=== PATIENT | male | born 1955 | race Caucasian/White ===

== ENCOUNTER 2016-04-02 13:33 | Outpatient (RCR) | payer BC, OTHER ==
[~2016-04-02 13:33] MED LIST: ASP325T PO; CALC-80 PO; CLPD75T PO; IRON45TA2 PO; MNTL10T PO; MULT1CAP27 PO; PANT40SU PO; [UNRECOGNIZED DRUG - CODE] PO
--- OUTSIDE RECORDS SUMMARY | 2016-04-02 13:38 | XMS REPORT | Continuity of Care Document ---
Author Author [facility] Organization [facility] Address Unknown Phone Unavailable Care Team Providers Care Home Appliance Installer Name Role Phone Self, Steven PCP [phone] Source Comments Some departments are not documenting in the electronic medical record. If you do not see the information that you expected, contact Release of Information in the Health Information Management department at [phone] for further assistance in locating additional records.[facility] Active Allergies and Adverse Reactions Allergen Noted Date Severity Reactions Comments Lactose 1955 Low NAUSEA ONLY, SWEATING Intense nausea, premedicates but still stays away Current Medications Prescription Sig. Disp. Refills Start End Date Status Date albuterol (VENTOLIN HFA, Inhale 2 Puffs by mouth Active PROAIR HFA) 90 into the lungs every 6 mcg/actuation inhaler hours as needed for Shortness of Breath. aspirin 325 mg tablet 1 Tab daily. 90 Tab 3 03/18/19 Active 16 diphenhydrAMINE/lidocaine Swish and Spit 10 mL by 480 mL 3 02/13/20 Active /antacid (#) (MAGIC mouth as directed three 16 MOUTHWASH) 1:1:1 oral times daily as needed for suspension Mouth Pain. oxymetazoline (AFRIN) Take 2 Sprays by mouth Active 0.05 % nasal spray three times daily as needed (helps stop bleeding). gabapentin (NEURONTIN) Take 5 mL by mouth twice 03/21/19 Active 250 mg/5 mL oral solution daily. 17 montelukast (SINGULAIR) Take 1 Tab via feeding 03/21/19 Active 10 mg tablet tube daily. 17 polyethylene glycol 3350 Take 17 g via feeding 03/21/19 Active (GLYCOLAX; MIRALAX) 17 tube daily. 17 gram/dose powder ferrous sulfate 300 mg/5 5 mL daily. give via 03/21/19 Active mL oral solution feeding tube 17 metoclopramide HCl 10 mL four times daily as 03/21/19 Active (REGLAN) 1 mg/mL oral needed for Nausea, 17 solution Vomiting or Other.... Give via feeding tube metoprolol tartrate 0.5 Tabs twice daily. 03/21/19 Active (LOPRESSOR) 25 mg tablet give via feeding tube. 17 acetaminophen (TYLENOL) Take 2 Tabs via feeding 03/21/19 Active 325 mg tablet tube every 6 hours as 17 needed for Pain. fentaNYL (DURAGESIC) 12 Apply 1 Patch to top of 10 Patch 0 03/21/19 Active mcg/hr patch skin as directed every 72 17 hours Earliest Fill Date: 03/21/16 oxyCODONE (ROXICODONE) 1 5-10 mL every 4 hours as 473 mL 0 03/21/19 Active mg/mL oral solution needed for Pain give via 17 feeding tube levoFLOXacin (LEVAQUIN) Take 20 mL by mouth every 200 mL 0 03/28/19 04/07/19 Active 25 mg/mL oral solution 24 hours for 10 days. 17 17 metroNIDAZOLE (#) Take 10 mL by mouth four 280 mL 0 03/28/19 Active (FLAGYL) 50 mg/mL oral times daily for 7 days. 17 17 suspension montelukast (SINGULAIR) Take 10 mg by mouth 03/21/19 Discontin 10 mg tablet daily. 17 ued vitamins, multiple tablet Take 1 Tab by mouth at 03/07/19 Discontin bedtime daily. 17 ued polyethylene glycol 3350 Take 17 g by mouth daily. 03/21/19 Discontin (GLYCOLAX; MIRALAX) 17 17 ued gram/dose powder fentaNYL (DURAGESIC) 12 Apply 1 Patch to top of 10 Patch 0 03/02/19 03/21/19 Discontin mcg/hr patch skin as directed every 72 17 17 ued hours Earliest Fill Date: 03/02/16 oxyCODONE (ROXICODONE) 1 Take 5-10 mL by mouth 1000 mL 0 03/02/19 Discontin mg/mL oral solution every 4 hours as needed 17 17 ued for Pain Earliest Fill Date: 03/02/16 ferrous sulfate 300 mg/5 Take 5 mL by mouth daily. 150 mL 12 03/02/19 03/21/19 Discontin mL oral solution 17 17 ued metoprolol tartrate Take 0.5 Tabs by mouth 180 Tab 3 03/02/19 Discontin (LOPRESSOR) 25 mg tablet twice daily. 17 17 ued gabapentin (NEURONTIN) Take 5 mL by mouth every 470 mL 12 03/02/19 03/21/19 Discontin 250 mg/5 mL oral solution 8 hours. 17 17 ued oxyCODONE (ROXICODONE) 1 Take 5-10 mL by mouth 1000 mL 0 03/07/19 Discontin mg/mL oral solution every 4 hours as needed 17 17 ued for Pain cephalexin (KEFLEX) 250 Take 10 mL by mouth twice 140 mL 0 03/07/19 03/14/19 mg/5 mL oral suspension daily for 7 days. 17 17 metoclopramide HCl Take 10 mL by mouth four 500 mL 0 03/07/19 Discontin (REGLAN) 1 mg/mL oral times daily as needed for 17 17 ued solution Nausea, Vomiting or Other.... acetaminophen (TYLENOL) Take 650 mg by mouth 03/21/19 Discontin 325 mg tablet every 6 hours as needed 17 ued for Pain. 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 Pressure ulcer to coccyx. Home health to assist with wound care. Tracheostomy care ([facility]) 03/19/2016 Failure to thrive (0-17) 03/19/2016 Protein-calorie malnutrition, severe ([facility]) 03/19/2016 Last Assessment & Plan: TPN in addition to J-tube feedings as patient continues to suffer from malnutrition. Jejunostomy tube leak ([facility]) 03/19/2016 Status post insertion of percutaneous endoscopic gastrostomy (PEG) tube ([facility]) Dislodged jejunostomy tube 03/19/2016 Generalized abdominal pain of unknown etiology 03/19/2016 Nausea 03/08/2016 Last Assessment & Plan: Reglan QID PRN as this will help with nausea and constipation. Constipation 03/08/2016 Last Assessment & Plan: Increase miralax and suppositories PRN. If abd pain does not improve or drainage from J-tube increases, he will contact general surgery or go to closes ER for evaluation. Cellulitis 03/08/2016 Last Assessment & Plan: Keflex BID for next 7 days. Hypercalcemia 03/07/2016 Last Assessment & Plan: Patient will receive zometa today along with IV fluids r/t elevated calcium. Repeat CMP in 1 week. Severe malnutrition (HCC) 02/26/2016 Last Assessment & Plan: Patient not tolerating J-tube feeding despite J-tube replacement. We will consult licensing officer to assist with TPN in the home. We will recheck weight and labs in 1 week. 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 Overview: 02/17/14: Squamous mucosa, "lower lip biopsy":Well differentiated invasive squamous cell carcinoma, p16 immunostain performed at [facility] on specimen 2 is negative 02/26/14: PET- hypermetabolic mandibular lesion with adjacent soft tissue thickening, bilateral metabolically active level One cervical lymph nodes compatible with bilateral regional metastatic disease 02/26/14: CT chest: 0.5 cm RUL nodule, 0.4 cm RUL 03/17/13: composite resection, tracheotomy, neck dissections, direct laryngoscopy Pathology - well differentiated squamous cell carcinoma, involves mandible, skin ulceration, 1 left level 1 positive node, 61 others negative, margins negative, closest 0.5 mm. pT4a,N1 Negative for HPV by CHERYL and p16 staining. NO PNI , LVI and NO CELESTE Adjuvant chemotherapy weekly cisplatin and concurrent radiation therapy (in [facility]) , Completed 06/11/2014. 12/27/2015- Right Retromolar Trigone biopsy- Invasive moderately to poorly differentiated squamous cell carcinoma. 01/16/2016- PET scan- There is diffuse increased metabolic activity in the maxillary and upper lip soft tissues, as well as the right mandibulectomy osteotomy site, the right mandibular body, and adjacent right perimandibular soft tissues demonstrating maximum SUV 15.6 There is a hypermetabolic right level 5 lymph node with maximum SUV 12.3 There is a focal increased FDG uptake posterior lateral to the left oropharyngeal wall, maximum SUV 6.24. There is also focal FDG uptake lateral to the right vallecula, maximum SUV 4.77. L ast Assessment & Plan: Patient's family report improvement in size and # of lesions under right eye and upper cheek. We will proceed with cycle #3 today. We will start antibiotic and flagyl r/t infection and foul odor from right cheek fistula/ulcer. He will return in 1 week with labs, possible fluids and visit. 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 Resolved Problems Problem Noted Date Resolved Date Oral cancer (HCC) 02/15/2014 03/22/2014 Overview: Noted bleeding from his gum in the summer and was diagnosed with gingivitis. He developed pain and issues eating as well as cervical adenopathy. Bopsied by Dr. Puckett and had a CT scan of the neck revealing squamous cell carcinoma with bilateral cervical metastasis. History of smokeless tobacco x 38 years, quit 9 years ago Mucosa and teeth intact and viable, bleeding ulcer in gingivolabial sulcus. Overlying skin indurated in 3-4 cm area. Midline trachea without mass or lesion, right 1.5 cm tender adenopathy level I B CT chest 02/26/14 w/2 tiny (5 and 4 mm) RUL nodules - plan to repeat scan in 3-6- months PET 02/26/14 hypermetabolic mandibular lesion (primary) and bilateral level one nodes S/P composite resection on 03/17/14, bilateral neck dissection, tracheotomy, free flap reconstruction Most Recent Encounters Date Type Specialty Providers Description 04/02/2016 Documentation Oncology Norma Garcia 03/29/2016 Office Visit General Surgery Fransisca Anaya APRN Skin breakdown (Primary Dx); Status post insertion of percutaneous endoscopic gastrostomy (PEG) tube (HCC); Jejunostomy tube leak (HCC); Protein-calorie malnutrition, severe (HCC) 03/29/2016 Orders Only Oncology Sanjeev Lozano MD Malignant neoplasm of head, face, and neck (HCC) (Primary Dx) 03/29/2016 Documentation Oncology Chastity Bass RD 03/29/2016 Documentation Oncology Norma Garcia 03/29/2016 Documentation Oncology Sanjeev Lozano MD 03/28/2016 Hospital Oncology Sanjeev Lozano MD Encounter 03/28/2016 Office Visit Oncology Sanjeev Lozano MD Cancer of the lip, oral cavity, and pharynx (HCC) (Primary Dx); Cellulitis of mouth; Malnutrition (HCC); Severe malnutrition (HCC); Protein-calorie malnutrition, severe (HCC); Skin breakdown 03/28/2016 Nurse Only Oncology Sanjeev Lozano MD Head and neck cancer (HCC) (Primary Dx) 03/28/2016 Documentation Oncology Norma Garcia 03/26/2016 Orders Only Oncology Nohelia Daly APRN 03/23/2016 Telephone Oncology Triny Alvarenga RN Swelling 03/19/2016 [facility] Linus Richter MD Jejunostomy tube leak - Encounter Marleny Colin DO (HCC) 03/21/2016 Lynne Espinoza RN Melvin, Lorie Collins, Zachary S, MD 03/19/2016 Office Visit Otolaryngology Nohelia Ibarra MD Tracheostomy care (HCC) (Primary Dx) 03/19/2016 Ancillary Radiology Outpatient, Radiologist Diagnosis unknown Orders (Primary Dx) 03/19/2016 Ancillary Radiology Outpatient, Radiologist Orders 03/15/2016 [facility] Sanjeev Lozano MD Malignant neoplasm of Encounter overlapping sites of lip, oral cavity and pharynx (HCC) 03/15/2016 Office Visit General Surgery Lynne Mckeon APRN S/P exploratory laparotomy (Primary Dx); Jejunostomy tube leak (HCC); Jejunostomy tube site pain (HCC); Oral phase dysphagia 03/14/2016 Telephone Oncology Sanjeev Lozano MD Research 03/12/2016 Hospital Radiology Encounter 03/12/2016 Telephone Oncology Etienne Good MD Fatigue 03/11/2016 Refill Oncology Sanjeev Lozano MD 03/07/2016 [facility] Oncology Nohelia Daly APRN Encounter 03/07/2016 Office Visit Oncology Nohelia Daly APRN Hypercalcemia ( Primary Dx); Head and neck cancer (HCC); Cellulitis, unspecified cellulitis site; Nausea; Cancer of the lip, oral cavity, and pharynx (HCC); Constipation, unspecified constipation type 03/07/2016 Nurse Only Oncology Nohelia Daly APRN Head and neck cancer (HCC) (Primary Dx) 03/04/2016 Orders Only Oncology Nohelia Daly APRN 02/28/2016 Anesthesia Kristina Causey, JIAN Event 02/28/2016 Surgery Nohelia Ibarra MD REVISION OF TRACHEOSTOMY, DIRECT LARYNGOSCOPY 02/27/2016 Prep for Case Adryan Mayorga MD 02/26/2016 Surgery Nasrin Avila MD Canceled TRACHEOSTOMY 02/25/2016 Prep for Case Pauline Schroeder MD 02/24/2016 [facility] Hematology and Oncology Hector Best MD Dysphagia - Encounter Arnulfo Burns MD 03/02/2016 Rachel Monzon MD Werner, Gregg, MD 02/22/2016 [facility] Oncology Nohelia Daly APRN No Show Encounter 02/22/2016 Office Visit Otolaryngology Amarilys Durán, Cancer of the lip, oral PA-C cavity, and pharynx (HCC) (Primary Dx); History of radiation to head and neck region; 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) 02/22/2016 Nurse Only Oncology Nohelia Daly APRN Oral cancer (HCC) (Primary Dx) 02/22/2016 Office Visit Oncology Nohelia Daly APRN Cancer of the lip, oral cavity, and pharynx (HCC) (Primary Dx); Oral pain 02/22/2016 Nurse Only Oncology Nohelia Daly APRN Head and neck cancer (HCC) 02/15/2016 [facility] Oncology Sanjeev Lozano MD Encounter 02/15/2016 [facility] Oncology Sanjeev Lozano MD Encounter 02/15/2016 [facility] Sanjeev Lozano MD Oral cancer (HCC) Encounter 02/15/2016 [facility] Jose Suarez MD Cancer of oral cavity Encounter (HCC) 02/15/2016 Documentation Oncology Kymberly Alvarez 02/15/2016 Documentation Oncology Aide Harrison 02/14/2016 Office Visit Otolaryngology Amarilys Durán, History of radiation to PA-C head and neck region (Primary Dx); Cancer of the lip, oral cavity, and pharynx (HCC); Pulmonary nodule 02/14/2016 Orders Only Oncology Sanjeev Lozano MD 02/13/2016 Office Visit Oncology Nohelia Daly APRN Cancer of the lip, oral cavity, and pharynx (HCC) (Primary Dx); Oral pain 02/13/2016 Nurse Only Oncology Nohelia Daly APRN Head and neck cancer (HCC) 02/13/2016 Documentation Oncology Nohelia Daly APRN 02/13/2016 Documentation Oncology Nohelia Daly APRN 02/13/2016 Documentation Oncology Kymberly Alvarez 02/07/2016 [facility] Radiology Sanjeev Lozano MD Encounter Micheal Soto RN Torline, Kit Collins, Zachary S, MD 02/03/2016 [facility] Radiology Sanjeev Lozano MD Encounter 02/01/2016 Screening Form 01/27/2016 Telephone Oncology Sanjeev Lozano MD Appointment Request 01/27/2016 Orders Only Oncology Sanjeev Lozano MD Head and neck cancer (HCC) (Primary Dx) 01/25/2016 Office Visit Oncology Nhoelia Ibarra MD Leukocytosis, unspecified Sanjeev Lozano MD type (Primary Dx); Cancer of the lip, oral cavity, and pharynx (HCC); Neoplastic malignant related fatigue; Other iron deficiency anemia 01/25/2016 Precert Oncology Sanjeev Lozano MD 01/25/2016 Documentation Oncology Sanjeev Lozano MD 01/17/2016 Office Visit Otolaryngology Jf Eid PA-C Cancer of the lip, oral cavity, and pharynx (HCC) (Primary Dx); 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); Neck mass; Oral pain; History of radiation to head and neck region; Pulmonary nodule; Oral lesion 01/17/2016 Orders Only Oncology Nohelia Ibarra MD Oral cancer (HCC) (Primary Dx) 01/16/2016 [facility] Radiology Jf Eid PA-C Encounter 01/16/2016 Screening Form 01/05/2016 [facility] Radiology Jf Eid PA-C Encounter 01/05/2016 Screening Form 01/04/2016 Telephone Otolaryngology Jf Eid PA-C Appointment - Regarding cancelling PET & CT's time change Social History Tobacco Use Types Packs/Day Years Used Date Never Smoker 36 Smokeless Tobacco: Former Snuff Quit: User 09/15/2004 Tobacco Cessation: Counseling Given: Yes Comments: Alcohol Use Drinks/Week oz/Week Comments No Last Filed Vital Signs Vital Sign Reading Time Taken Blood Pressure 146/86 03/29/2016 1:58 PM HVAC RESIDENTIAL SERVICE TECHNICIAN Pulse 104 03/29/2016 1:58 PM HVAC RESIDENTIAL SERVICE TECHNICIAN Temperature 36.7 C (98 F) 03/29/2016 1:58 PM HVAC RESIDENTIAL SERVICE TECHNICIAN Respiratory Rate 20 03/29/2016 1:58 PM HVAC RESIDENTIAL SERVICE TECHNICIAN Height 1.803 m (5' 11") 03/29/2016 1:58 PM HVAC RESIDENTIAL SERVICE TECHNICIAN Weight 45.632 kg (100 lb 9.6 oz) 03/29/2016 1:58 PM HVAC RESIDENTIAL SERVICE TECHNICIAN Body Mass Index 14.04 03/29/2016 1:58 PM HVAC RESIDENTIAL SERVICE TECHNICIAN Oxygen Saturation 98% 03/28/2016 2:57 PM HVAC RESIDENTIAL SERVICE TECHNICIAN Plan of Care Date Type Specialty Providers Description 04/04/2016 Appointment Oncology Sanjeev Lozano MD [address] [place] [address] [phone] (Fax) 04/04/2016 Appointment Oncology Nohelia Daly APRN [address] [place] [address] [phone] (Fax) 04/04/2016 Appointment Oncology Sanjeev Lozano MD [address] [place] [address] [phone] (Fax) 04/26/2016 Appointment General Surgery Health Maintenance Due Date Last Done Comments Hepatitis C Screening 1955 Physical (Comprehensive) 1960 Exam Pertussis Vaccine 1964 Tetanus Vaccine 1970 Colorectal Cancer 2003 Screening Shingles Vaccine 2013 Influenza Vaccine 10/27/2015 Procedures from Last 3 Months Procedure Name Priority Date/Time Associated Diagnosis Comments TELEMETRY STRIPS-SCAN 03/05/2016 Results for this 1:54 PM HVAC RESIDENTIAL SERVICE TECHNICIAN procedure are in the results section. OPEN INSERTION 02/28/2016 Oral cancer (HCC) GASTROSTOMY TUBE 9:35 AM HVAC RESIDENTIAL SERVICE TECHNICIAN REVISION OF TRACHEOSTOMY, 02/28/2016 Oral cancer (HCC) DIRECT LARYNGOSCOPY 9:35 AM HVAC RESIDENTIAL SERVICE TECHNICIAN ECG-SCAN 02/16/2016 Results for this 7:29 AM HVAC RESIDENTIAL SERVICE TECHNICIAN procedure are in the results section. ECG-SCAN 02/16/2016 Results for this 7:29 AM HVAC RESIDENTIAL SERVICE TECHNICIAN procedure are in the results section. Results from Last 3 Months URIC ACID (03/28/2016 2:43 PM)Only the most recent of 4 results within the time period is included. Component Value Range Uric Acid 6.0 4.0-8.0 MG/DL LDH-LACTATE DEHYDROGENASE (03/28/2016 2:43 PM)Only the most recent of 4 results within the time period is included. Component Value Range Lactate Dehydrogenase 349 (H) 100-210 U/L BILIRUBIN, DIRECT (03/28/2016 2:43 PM)Only the most recent of 4 results within the time period is included. Component Value Range Bilirubin, Direct 0.1 <0.4 MG/DL PHOSPHORUS (03/28/2016 2:43 PM)Only the most recent of 8 results within the time period is included. Component Value Range Phosphorus 2.3 2.0-4.0 MG/DL MAGNESIUM (03/28/2016 2:43 PM)Only the most recent of 8 results within the time period is included. Component Value Range Magnesium 2.3 1.6-2.6 mg/dL TRIGLYCERIDE (03/28/2016 2:43 PM)Only the most recent of 2 results within the time period is included. Component Value Range Triglycerides 90 <150 MG/DL Specimen Blood COMPREHENSIVE METABOLIC PANEL (03/28/2016 2:43 PM)Only the most recent of 17 results within the time period is included. Component Value Range Sodium 139 137-147 MMOL/L Potassium 3.9 3.5-5.1 MMOL/L Chloride 106 98-110 MMOL/L Glucose 90 70-100 MG/DL Blood Urea Nitrogen 26 (H) 7-25 MG/DL Creatinine 0.66 0.4-1.24 MG/DL Calcium 9.8 8.5-10.6 MG/DL Total Protein 6.7 6.0-8.0 G/DL Total Bilirubin 0.6 0.3-1.2 MG/DL Albumin 3.0 (L) 3.5-5.0 G/DL Alk Phosphatase 93 25-110 U/L AST (SGOT) 18 7-40 U/L CO2 26 21-30 MMOL/L ALT (SGPT) 13 7-56 U/L Anion Gap 7 3-12 eGFR Non >60Comment: >60 mL/min The eGFR is not validated for use in drug dosing adjustments. Continue to use estimated creatinine clearance per dosing reference text. Please contact the Clinical Pharmacist for questions. eGFR >60Comment: >60 mL/min The eGFR is not validated for use in drug dosing adjustments. Continue to use estimated creatinine clearance per dosing reference text. Please contact the Clinical Pharmacist for questions. Specimen Blood CBC AND DIFF (03/28/2016 2:43 PM)Only the most recent of 16 results within the time period is included. Component Value Range White Blood Cells 12.7 (H) 4.5-11.0 K/UL RBC 3.70 (L) 4.4-5.5 M/UL Hemoglobin 10.1 (L) 13.5-16.5 GM/DL Hematocrit 32.1 (L) 40-50 % MCV 86.7 80-100 FL MCH 27.3 26-34 PG MCHC 31.4 (L) 32.0-36.0 G/DL RDW 13.1 11-15 % Platelet Count 352 150-400 K/UL MPV 8.5 7-11 FL Neutrophils 85 (H) 41-77 % Lymphocytes 7 (L) 24-44 % Monocytes 8 4-12 % Eosinophils 0 0-5 % Basophils 0 0-2 % Absolute Neutrophil Count 10.80 (H) 1.8-7.0 K/UL Absolute Lymph Count 0.90 (L) 1.0-4.8 K/UL Absolute Monocyte Count 1.00 (H) 0-0.80 K/UL Absolute Eosinophil Count 0.10 0-0.45 K/UL Absolute Basophil Count 0.00 0-0.20 K/UL Specimen Blood ABDOMEN AP ONLY (03/20/2016 12:05 PM)Only the most recent of 2 results within the time period is included. Impressions 1. Intraluminal position of the left abdominal jejunostomy tube. By my electronic signature, I attest that I have personally reviewed the images for this examination and formulated the interpretations and opinions expressed in this report Finalized by Eboni Rizo M.D. on 03/20/2016 1:26 PM. Dictated by Scot Hernandez M.D. on 03/20/2016 12:57 PM. Narrative ABDOMEN AP ONLY CLINICAL INDICATION: Fluoroscopic Tube check/confirmation COMPARISON: Radiograph earlier same day TECHNIQUE: 30 mL of Gastroview contrast was instilled through the left abdominal jejunostom y tube. Lateral and supine AP images of the abdomen were obtained. FINDINGS: Interval placement of jejunostomy tube which overlies the mid abdomen with tip projecting over the left mid abdomen. Instilled contrast material visualized within the jejunum extending to the left abdomen. No evidence of extravasated contrast. Additional contrast material within the urinary bladder. Procedure Note Interface, Radiant Results - Tue Mar 20, 2016 1:29 PM HVAC RESIDENTIAL SERVICE TECHNICIAN ABDOMEN AP ONLY CLINICAL INDICATION: Fluoroscopic Tube check/confirmation COMPARISON: Radiograph earlier same day TECHNIQUE: 30 mL of Gastroview contrast was instilled through the left abdominal jejunostomy tube. Lateral and supine AP images of the abdomen were obtained. FINDINGS: Interval placement of jejunostomy tube which overlies the mid abdomen with tip projecting over the left mid abdomen. Instilled contrast material visualized within the jejunum extending to the left abdomen. No evidence of extravasated contrast. Additional contrast material within the urinary bladder. IMPRESSION 1. Intraluminal position of the left abdominal jejunostomy tube. By my electronic signature, I attest that I have personally reviewed the images for this examination and formulated the interpretations and opinions expressed in this report Finalized by Eboni Rizo M.D. on 03/20/2016 1:26 PM. Dictated by Scot Hernandez M.D. on 03/20/2016 12:[address] ABD/PELV W CONTRAST (03/19/2016 9:45 PM) Impressions 1. Previous percutaneous gastrostomy tube has reportedly dislodged and is not visualized, no free air or significant intraperitoneal ascites. 2. Mild fluid distended pelvic small bowel loop similar prior study, exact etiology of distention is not apparent, may be adhesive in reflecting underlying chronic partial obstruction. No definite bowel ischemia, no pneumatosis or portal venous gas. 3. Minimal tiny dependent cholelithiasis. By my electronic signature, I attest that I have personally reviewed the images for this examination and formulated the interpretations and opinions expressed in this report Finalized by Ed Blevins M.D. on 03/19/2016 11:32 PM. Dictated by Reshma Valverde M.D. on 03/19/2016 10:[address] ABDOMEN AND PELVIS Clinical Indication:60-year-old male. Abdominal pain, history of J-tube leak and dislodged J-tube. Technique:Multiple contiguous axial images were obtained through the abdomen and pelvis following the administration of IV contrast material. Post processing coronal and sagittal reconstruction images were made from the axial images. IV contrast: 100 mL Isovue 370. Bowel contrast: Comparison: None CT abdomen findings: The lung bases are clear. There is no pleural or pericardial effusion. Postsurgical changes are again seen at the GE junction. The liver and spleen are normal in size without focal lesion. There is [id number] fatty atrophy of the pancreas. Degenerative glands unremarkable. Kidneys grossly normal in size with a left-sided renal cyst is unchanged. No hydronephrosis. The abdominal aorta is normal in caliber with mild calcified S chronic plaquing. Gallbladder is upper limits of normal with small dependent cholelithiasis noted, gallbladder measuring 3.7 cm in transverse dimension. There is no upper abdominal ascites. The lumbar spine is intact with mild exaggeration of the lumbar lordosis. CT pelvis findings: There is a single small bowel loop the remains fluid distended similar prior study exact etiology of chronic fluid distention is indeterminate. Gastrojejunostomy is noted. There is no evidence of bowel obstruction or laboratory bowel segment. Previous percutaneous jejunostomy tube is no longer present. No pelvic free fluid. Urinary bladder is adequately distended. Prostate appears within normal limits. There is no iliac or inguinal adenopathy. Pelvic osseous structures are intact. Procedure Note Interface, Radiant Results - SatMar 19, 2016 11:35 PM HVAC RESIDENTIAL SERVICE TECHNICIAN CT ABDOMEN AND PELVIS Clinical Indication: 60-year-old male. Abdominal pain, history of J-tube leak and dislodged J-tube. Technique: Multiple contiguous axial images were obtained through the abdomen and pelvis following the administration of IV contrast material. Post processing coronal and sagittal reconstruction images were made from the axial images. IV contrast: 100 mL Isovue 370. Bowel contrast: Comparison: None CT abdomen findings: The lung bases are clear. There is no pleural or pericardial effusion. Postsurgical changes are again seen at the GE junction. The liver and spleen are normal in size without focal lesion. There is ltmc-[id number] fatty atrophy of the pancreas. Degenerative glands unremarkable. Kidneys grossly normal in size with a left-sided renal cyst is unchanged. No hydronephrosis. The abdominal aorta is normal in caliber with mild calcified S chronic plaquing. Gallbladder is upper limits of normal with small dependent cholelithiasis noted, gallbladder measuring 3.7 cm in transverse dimension. There is no upper abdominal ascites. The lumbar spine is intact with mild exaggeration of the lumbar lordosis. CT pelvis findings: There is a single small bowel loop the remains fluid distended similar prior study exact etiology of chronic fluid distention is indeterminate. Gastrojejunostomy is noted. There is no evidence of bowel obstruction or laboratory bowel segment. Previous percutaneous jejunostomy tube is no longer present. No pelvic free fluid. Urinary bladder is adequately distended. Prostate appears within normal limits. There is no iliac or inguinal adenopathy. Pelvic osseous structures are intact. IMPRESSION 1. Previous percutaneous gastrostomy tube has reportedly dislodged and is not visualized, no free air or significant intraperitoneal ascites. 2. Mild fluid distended pelvic small bowel loop similar prior study, exact etiology of distention is not apparent, may be adhesive in reflecting underlying chronic partial obstruction. No definite bowel ischemia, no pneumatosis or portal venous gas. 3. Minimal tiny dependent cholelithiasis. By my electronic signature, I attest that I have personally reviewed the images for this examination and formulated the interpretations and opinions expressed in this report Finalized by Ed Blevins M.D. on 03/19/2016 11:32 PM. Dictated by Reshma Valverde M.D. on 03/19/2016 10:56 PM. IR GASTROSTOMY (03/19/2016 4:31 PM) Impressions Aborted percutaneous gastrostomy tube. Patient will require a barium enema and repeat gastrostomy tube placement attempt. Finalized by Kleber Cardona M.D. on 03/21/2016 4:04 PM. Dictated by Kleber Cardona M.D. on 03/21/2016 3:42 PM. Narrative Procedure:Aborted gastrostomy tube Indication:Dysphagia. Medications: 1 gram IV Ancef, 1 mg IV glucagon, 2 mg IV Versed, and 100 mcgs IV fentanyl Contrast:0 cc s Visipaque 320 nonionic Complications:Noneimmediate Technique: Informed consent was obtained. The specific risks of bleeding, damage to adjacent organs,(liver and bowel)and infection were discussed and accepted. The anterior abdominal wall was prepped and draped in sterile fashion. The liver edge was ultrasonographically evaluated and marked on the skin. A metallic marker was placed at the lower costal margin on the left. IV glucagon was administered. Through a Dobbhoff type tube, the gastric lumen was insufflated with air. Fluoroscopy was utilized to exclude the presence of overlying bowel gas. Findings: The window is inappropriate for percutaneous gastrostomy tube placement. Suspected intervening bowel was seen. Procedure Note Interface, Radiant Results - SatMar 21, 2016 4:08 PM HVAC RESIDENTIAL SERVICE TECHNICIAN Procedure: Aborted gastrostomy tube Indication: Dysphagia. Medications: 1 gram IV Ancef, 1 mg IV glucagon, 2 mg IV Versed, and 100 mcgs IV fentanyl Contrast: 0 cc s Visipaque 320 nonionic Complications: None immediate Technique: Informed consent was obtained. The specific risks of bleeding, damage to adjacent organs,(liver and bowel) and infection were discussed and accepted. The anterior abdominal wall was prepped and draped in sterile fashion. The liver edge was ultrasonographically evaluated and marked on the skin. A metallic marker was placed at the lower costal margin on the left. IV glucagon was administered. Through a Dobbhoff type tube, the gastric lumen was insufflated with air. Fluoroscopy was utilized to exclude the presence of overlying bowel gas. Findings: The window is inappropriate for percutaneous gastrostomy tube placement. Suspected intervening bowel was seen. IMPRESSION Aborted percutaneous gastrostomy tube. Patient will require a barium enema and repeat gastrostomy tube placement attempt. Finalized by Kleber Cardona M.D. on 03/21/2016 4:04 PM. Dictated by Kleber Cardona M.D. on 03/21/2016 3:[address] ABD/PEL EXTERNAL IMAGING (03/12/2016) Narrative This order has been auto finalized and does not contain a result. FREE T4 (FREE THYROXINE) ONLY (03/07/2016 2:54 PM)Only the most recent of 2 results within the time period is included. Component Value Range T4-Free 1.3 0.6-1.6 NG/DL Specimen Blood FREE T3 (FREE TRIIODOTHYONINE) (03/07/2016 2:54 PM)Only the most recent of 2 results within the time period is included. Component Value Range T3-Free 2.6 2.1-3.9 PG/ML Specimen Blood THYROID STIMULATING HORMONE-TSH (03/07/2016 2:54 PM)Only the most recent of 2 results within the time period is included. Component Value Range TSH 5.306 (H) 0.35-5.00 MCU/ML Specimen Blood URINALYSIS DIPSTICK (03/07/2016 2:54 PM)Only the most recent of 2 results within the time period is included. Component Value Range Color,UA YELLOW Turbidity,UA CLEAR CLEAR-CLEAR Specific Salyer-Urine 1.025 1.003-1.035 pH,UA 5.5 5.0-8.0 Protein,UA NEG NEG-NEG Glucose,UA NEG NEG-NEG Ketones,UA NEG NEG-NEG Bilirubin,UA POS (A) NEG-NEG Blood,UA NEG NEG-NEG Urobilinogen,UA NORMAL NORM-NORMAL Nitrite,UA NEG NEG-NEG Leukocytes,UA NEG NEG-NEG Specimen Urine TELEMETRY STRIPS-SCAN (03/05/2016 1:54 PM) Narrative Ordered by an unspecified provider. URINALYSIS, MICROSCOPIC (03/02/2016 5:20 PM) Component Value Range WBCs,UA 2-10 0-2 /HPF RBCs,UA NONE 0-3 /HPF MucousUA TRACE Amorphous Sedimate,UA MANY Specimen Urine POC GLUCOSE (03/01/2016 8:54 PM)Only the most recent of 11 results within the time period is included. Component Value Range Glucose, POC 94 70-100 MG/DL SURGICAL PATHOLOGY (02/28/2016 8:08 AM) Component Value Range PATHOLOGY REPORT [facility] [email or web address] Julia Jarvis MD, PhD, Director of Anatomic Pathology Department of Pathology and Laboratory Medicine [address] [place] [id number] Surgical Pathology Office: [phone] SURGICAL PATHOLOGY REPORT NAME: ELICEO ALFARO SURG PATH #: [id number] MR #: [id number] SPECIMEN CLASS: SR BILLING #: [id number] ALT ID #: [place] [facility] [place]EDURE: 02/28/2016 AGE: 60 SEX: M DATE RECEIVED: 02/29/2016 : 1955 TIME RECEIVED: 08:08 PHYSICIAN: NOHELIA IBARRA DATE OF REPORT: 03/01/2016 COPY TO: DATE OF PRINTIN03/01/2016 ################################################## ###################### Final Diagnosis: A. Skin, "abdominal scar", excision: Dermal fibrosis. Attestation: By this signature, I attest that I have personally formulated the final interpretation expressed in this report and that the above diagnosis is based upon my examination of the slides and/or other material indicated in this report. 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 Gross Description: A. Received in formalin, labeled with the patient's name and "abdominal scar" is a 9.0 x 0.9 x 0.5 cm linear excision of pale dutta, wrinkled skin. The skin surface demonstrates a central defect that extends the entire length of the specimen and is consistent with scarring. The specimen is serially sectioned and appeals representative sections are submitted in cassette A1. (jkh) rosales/02/29/2016 CT NECK W/CONTRAST (02/24/2016 2:21 PM)Only the most recent of 3 results within the time period is included. Addenda Addendum by Tra Hansen MD on 02/29/2016 8:48 AM Finalized by TRA HANSEN M.D. on 02/24/2016 2:43 PM. Dictated by TRA HANSEN M.D. on 02/24/2016 2:25 PM.Addendum: Addendum: There is a dictation error within the impression #2. This should read new dermal metastasis in the right submandibular region instead of dural metastasis. Finalized by TRA HANSEN M.D. on 02/29/2016 8:45 AM. Dictated by TRA HANSEN M.D. on 02/29/2016 8:44 AM. Impressions 1.Progression of the primary right large oral cavity infiltrative mass lesion which now crosses midline along the base of the tongue and involves both vallecula. This also now appears to extend to the cutaneous surface of the right cheek, new from February 03, 2016. 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 3.No significant change in bilateral cervical gene metastasis. Some of these are nodes are minimally smaller in size and several minimally larger. 4.Unchanged multiple small biapical pulmonary nodules. Narrative CT Neck with Contrast Clinical Indication: Male, 60 years old. Squamous cell carcinoma. Feels like throat is closing. Technique: Multiple contiguous axial images were obtained through the neck following the administration of IV contrast material. Post processing coronal and sagittal reconstruction images were made from the axial images. Comparison: February 03, 2016 Findings: Brain and Orbits: Normal. Sinuses and Mastoids: Normal. Suprahyoid Neck: Extensive postsurgical changes to the oral cavity are redemonstrated as described on the CT of February 02. There is redemonstration of the ill-defined enhancing soft tissue mass lesion along the right buccal surface and floor of mouth into the right glossotonsillar sulcus, base of tongue , and vallecula. The base of tongue and vallecular involvement has increased from the prior examination and now clearly crosses midline. The anterolateral component of this now appears to extend to the surface of the right cheek, new from the prior examination. There has been no significant change in bony erosion of the superficial aspect of the ramus of the mandible. There is a new dermal metastasis in the right submandibular region measuring 0.8 cm in diameter (series 2 image 86) Infrahyoid Neck: Mucosal edema within the supraglottic structures most likely post therapeutic in nature. Lymph Nodes: There has been no significant change to minimal decrease in size of right level 5 enlarged lymph node which now measures 1.6 x 1.1 x 1.9 cm ( series 2 image 102, coronal image 66) compared to 1.6 x 1.3 x 2.0 cm previously. The left level 3 most prominent lymph node measures 1.6 x 0.9 x 2.0 cm (series 2 image 104, coronal image 61) compared to 1.3 x 0.7 x 2.3 cm previously. Other scattered bilateral cervical chain abnormal lymph nodes without significant change from the prior examination. Parotid and Submandibular Glands: Normal parotid glands. Surgically absent submandibular glands. Thyroid: Unchanged multiple thyroid nodules. Vasculature: Calcified atherosclerotic disease at the carotid bifurcations. Osseous Structures: Bony destruction of the mandible as described above. No additional bony lesions. Thoracic inlet: Unchanged multiple small biapical pulmonary nodules. Procedure Note Interface, Radiant Results - SatFeb 29, 2016 8:48 AM HVAC RESIDENTIAL SERVICE TECHNICIAN CT Neck with Contrast Clinical Indication: Male, 60 years old. Squamous cell carcinoma. Feels like throat is closing. Technique: Multiple contiguous axial images were obtained through the neck following the administration of IV contrast material. Post processing coronal and sagittal reconstruction images were made from the axial images. Comparison: February 03, 2016 Findings: Brain and Orbits: Normal. Sinuses and Mastoids: Normal. Suprahyoid Neck: Extensive postsurgical changes to the oral cavity are redemonstrated as described on the CT of February 02. There is redemonstration of the ill-defined enhancing soft tissue mass lesion along the right buccal surface and floor of mouth into the right glossotonsillar sulcus, base of tongue , and vallecula. The base of tongue and vallecular involvement has increased from the prior examination and now clearly crosses midline. The anterolateral component of this now appears to extend to the surface of the right cheek, new from the prior examination. There has been no significant change in bony erosion of the superficial aspect of the ramus of the mandible. There is a new dermal metastasis in the right submandibular region measuring 0.8 cm in diameter (series 2 image 86) Infrahyoid Neck: Mucosal edema within the supraglottic structures most likely post therapeutic in nature. Lymph Nodes: There has been no significant change to minimal decrease in size of right level 5 enlarged lymph node which now measures 1.6 x 1.1 x 1.9 cm ( series 2 image 102, coronal image 66) compared to 1.6 x 1.3 x 2.0 cm previously. The left level 3 most prominent lymph node measures 1.6 x 0.9 x 2.0 cm (series 2 image 104, coronal image 61) compared to 1.3 x 0.7 x 2.3 cm previously. Other scattered bilateral cervical chain abnormal lymph nodes without significant change from the prior examination. Parotid and Submandibular Glands: Normal parotid glands. Surgically absent submandibular glands. Thyroid: Unchanged multiple thyroid nodules. Vasculature: Calcified atherosclerotic disease at the carotid bifurcations. Osseous Structures: Bony destruction of the mandible as described above. No additional bony lesions. Thoracic inlet: Unchanged multiple small biapical pulmonary nodules. IMPRESSION 1. Progression of the primary right large oral cavity infiltrative mass lesion which now crosses midline along the base of the tongue and involves both vallecula. This also now appears to extend to the cutaneous surface of the right cheek, new from February 03, 2016. 2. New dural metastasis in the right submandibular region. 3. No significant change in bilateral cervical gene metastasis. Some of these are nodes are minimally smaller in size and several minimally larger. 4. Unchanged multiple small biapical pulmonary nodules. LACTIC ACID(LACTATE) (02/24/2016 1:45 PM) Component Value Range Lactic Acid 0.8 0.5-2.0 MMOL/L ECG-SCAN (02/16/2016 7:29 AM) Narrative Ordered by an unspecified provider. ECG-SCAN (02/16/2016 7:29 AM) Narrative Ordered by an unspecified provider. PROTIME INR (PT) (02/13/2016 10:14 AM) Component Value Range INR 1.1 0.8-1.2 Specimen Blood PTT (APTT) (02/13/2016 10:14 AM) Component Value Range APTT 33.5 24.0-40.0 SEC Specimen Blood IR CENTRAL VENOUS CATHETER (02/07/2016 9:43 AM) Impressions IMPRESSION:Successful image guided placement of a right internal jugular vein chest port as described above. Kleber Vasquez M.D, the attending radiologist, was present for the critical and irwin portions of the procedure with a midlevel, resident, and/or fellow participating.Overlapping portions were non irwin and I was immediately available.I interpret the critical and irwin portion of this procedure to have been needle access. @TT Approved by Becky Kerr M.D. on 02/08/2016 6:57 AM By my electronic signature, I attest that I have personally reviewed the images for this examination and formulated the interpretations and opinions expressed in this report Finalized by Kleber Cardona M.D. on 02/08/2016 8:47 AM. Dictated by Becky Kerr M.D. on 02/08/2016 6:56 AM. Narrative CHEST PORT PLACEMENT WITH ULTRASOUND AND FLUORO GUIDANCE DATE: 02/07/2016 CLINICAL INDICATION: 60-year-old male with head and neck cancer, chemotherapy. DRAPERY CUTTER MACHINE:Dr. Usha Looney MEDICATIONS:Versed 2 mg IV, Fentanyl 100 mcg IV, 20 mL lidocaine 2% CATHETER: 8 Malian 23 cm PowerPort PUNCTURE SITE: Right internal jugular vein FLUOROSCOPY TIME:0.6 minutes TECHNIQUE: The risks, benefits, and alternatives to the procedure and sedation were explained, and written informed consent obtained. With patient in the supine position, the patient's right neck and upper chest were prepped and draped in the usual sterile fashion. Ultrasound of the right internal jugular vein was performed demonstrating patency.The skin and subcutaneous tissues overlying the vein were infiltrated with 2% Lidocaine without epinephrine. Under ultrasound guidance, the right internal jugular vein was accessed with a micropuncture needle. Needle entering the vessel was documented and an ultrasound imaged was saved and sent to PACS.A 0.018 wire was advanced through the needle into the vein. The needle was exchanged for a 5 Malian coaxial dilator. Attention was turned to the creation of a subcutaneous pocket and tunnel.2% Lidocaine with epinephrine were infiltrated on the chest wall along a tract caudal and lateral to the initial venotomy site.An incision was made and a pocket was bluntly dissected. The pocket was copiously irrigated with sterile normal saline.The tunneling tool was passed and the catheter was pulled through the initial venotomy site. The catheter was cut to length and attached to the port reservoir. The introducer of the coaxial catheter was removed and a 0.035" Amplatz wire was passed into the IVC. The micropuncture sheath was exchanged for a peel a way. The catheter was advanced through the sheath and positioned centrally using fluoroscopy.The sheath was removed. The venotomy site was closed with 4-0 Vicryl sutureDermabond.The pocket was closed with three interrupted deep sutures with 2-0 Vicryl followed by Dermabond. The patient tolerated the procedure well and remained in stable condition throughout the stay in the angiography suite.The catheter port was flushed, heparinized, and a sterile dressing was applied. FINDINGS: 1. Patent right internal jugular vein by ultrasound.Needle entry documented , and an ultrasound image was saved to PACS. 2. Catheter tip is appropriately placed in the proximal right atrium. Procedure Note Interface, Radiant Results - SatFeb 08, 2016 8:50 AM HVAC RESIDENTIAL SERVICE TECHNICIAN CHEST PORT PLACEMENT WITH ULTRASOUND AND FLUORO GUIDANCE DATE: 02/07/2016 CLINICAL INDICATION: 60-year-old male with head and neck cancer, chemotherapy. DRAPERY CUTTER MACHINE: Dr. Usha Looney MEDICATIONS: Versed 2 mg IV, Fentanyl 100 mcg IV, 20 mL lidocaine 2% CATHETER: 8 Malian 23 cm PowerPort PUNCTURE SITE: Right internal jugular vein FLUOROSCOPY TIME: 0.6 minutes TECHNIQUE: The risks, benefits, and alternatives to the procedure and sedation were explained, and written informed consent obtained. With patient in the supine position, the patient's right neck and upper chest were prepped and draped in the usual sterile fashion. Ultrasound of the right internal jugular vein was performed demonstrating patency. The skin and subcutaneous tissues overlying the vein were infiltrated with 2% Lidocaine without epinephrine. Under ultrasound guidance, the right internal jugular vein was accessed with a micropuncture needle. Needle entering the vessel was documented and an ultrasound imaged was saved and sent to PACS. A 0.018 wire was advanced through the needle into the vein. The needle was exchanged for a 5 Malian coaxial dilator. Attention was turned to the creation of a subcutaneous pocket and tunnel. 2% Lidocaine with epinephrine were infiltrated on the chest wall along a tract caudal and lateral to the initial venotomy site. An incision was made and a pocket was bluntly dissected. The pocket was copiously irrigated with sterile normal saline. The tunneling tool was passed and the catheter was pulled through the initial venotomy site. The catheter was cut to length and attached to the port reservoir. The introducer of the coaxial catheter was removed and a 0.035" Amplatz wire was passed into the IVC. The micropuncture sheath was exchanged for a peel a way. The catheter was advanced through the sheath and positioned centrally using fluoroscopy. The sheath was removed. The venotomy site was closed with 4-0 Vicryl sutureDermabond. The pocket was closed with three interrupted deep sutures with 2-0 Vicryl followed by Dermabond. The patient tolerated the procedure well and remained in stable condition throughout the stay in the angiography suite. The catheter port was flushed, heparinized, and a sterile dressing was applied. FINDINGS: 1. Patent right internal jugular vein by ultrasound. Needle entry documented, and an ultrasound image was saved to PACS. 2. Catheter tip is appropriately placed in the proximal right atrium. IMPRESSION IMPRESSION: Successful image guided placement of a right internal jugular vein chest port as described above. I, Kleber Cardona M.D, the attending radiologist, was present for the critical and irwin portions of the procedure with a midlevel, resident, and/or fellow participating. Overlapping portions were non irwin and I was immediately available. I interpret the critical and irwin portion of this procedure to have been needle access. @TT Approved by Becky Kerr M.D. on 02/08/2016 6:57 AM By my electronic signature, I attest that I have personally reviewed the images for this examination and formulated the interpretations and opinions expressed in this report Finalized by Kleber Cardona M.D. on 02/08/2016 8:47 AM. Dictated by Becky Kerr M.D. on 02/08/2016 6:[address] ABDOMEN W CONTRAST (02/03/2016 1:49 PM) Impressions CHEST: 1.Stable right upper lobe pulmonary nodules, likely benign given stability since February 2014. 2.No thoracic lymph adenopathy. ABDOMEN: 1.No metastatic disease in the abdomen or pelvis. 2.Cholelithiasis. Finalized by Bel Ennis M.D. on 02/03/2016 3:44 PM. Dictated by Bel Ennis M.D. on 02/03/2016 3:[address] CHEST AND ABDOMEN Clinical Indication:Male, 60 years old. Recurrent oropharyngeal cancer. Technique: Multiple contiguous axial images were obtained through the chest and abdomen following the administration of IV contrast material. Portal venous and delayed imaging was obtained. Post processing coronal and sagittal reconstruction images were made from the axial images. IV contrast: Isovue-370 Bowel contrast:None Comparison: CT chest 01/05/2016, PET/CT 02/26/2014. CHEST FINDINGS: Lower Neck: There are unchanged subcentimeter thyroid nodules area there is a punctate calcification in the left thyroid lobe. There are surgical clips in the left neck base. Axilla, Mediastinum and Angie: There is no axillary, mediastinal, or hilar lymphadenopathy. Heart and Great Vessels: Cardiac size is within normal limits. There is coronary artery atherosclerosis. There is no pericardial effusion. The great vessels are normal in caliber. Airway, Lungs and Pleura: The central airways are patent. There is nodular biapical pleural parenchymal fibrosis, unchanged since the prior exam. A 7 mm right apical nodule is stable (series 2, image 10). Adjacent small right upper lobe nodules are stable. No new nodules identified. There is no pleural effusion. Chest Wall and Osseous Structures: There are degenerative changes of the thoracic spine. ABDOMEN FINDINGS: Liver and Biliary system: The liver is stable in size. There is no intrahepatic mass. The portal and hepatic veins are patent. The gallbladder is present. There is cholelithiasis. There is no biliary ductal dilatation. Spleen: The spleen is normal in size. Adrenal Glands and Kidneys: The adrenal glands are unremarkable. There is symmetric enhancement the kidneys without hydronephrosis. There is a left renal cyst. Pancreas and Retroperitoneum: There is fatty infiltration of the pancreas. There is no retroperitoneal adenopathy. Aorta and Major Vessels: There is moderate calcific atherosclerosis of the abdominal aorta and iliac arteries. The aorta is normal in caliber. Bowel, Mesentery and Peritoneal space: Postoperative changes from gastric bypass surgery are noted. There is abundant stool in the colon. There is no bowel obstruction. There is no ascites or mesenteric adenopathy. Abdominal wall and Osseous Structures: There are post surgical changes in the anterior abdominal wall. There are mild degenerative changes of the lumbar spine. 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 Recurrent oropharyngeal cancer. Technique: Multiple contiguous axial images were obtained through the chest and abdomen following the administration of IV contrast material. Portal venous and delayed imaging was obtained. Post processing coronal and sagittal reconstruction images were made from the axial images. IV contrast: Isovue-370 Bowel contrast: None Comparison: CT chest 01/05/2016, PET/CT 02/26/2014. CHEST FINDINGS: Lower Neck: There are unchanged subcentimeter thyroid nodules area there is a punctate calcification in the left thyroid lobe. There are surgical clips in the left neck base. Axilla, Mediastinum and Angie: There is no axillary, mediastinal, or hilar lymphadenopathy. Heart and Great Vessels: Cardiac size is within normal limits. There is coronary artery atherosclerosis. There is no pericardial effusion. The great vessels are normal in caliber. Airway, Lungs and Pleura: The central airways are patent. There is nodular biapical pleural parenchymal fibrosis, unchanged since the prior exam. A 7 mm right apical nodule is stable (series 2, image 10). Adjacent small right upper lobe nodules are stable. No new nodules identified. There is no pleural effusion. Chest Wall and Osseous Structures: There are degenerative changes of the thoracic spine. ABDOMEN FINDINGS: Liver and Biliary system: The liver is stable in size. There is no intrahepatic mass. The portal and hepatic veins are patent. The gallbladder is present. There is cholelithiasis. There is no biliary ductal dilatation. Spleen: The spleen is normal in size. Adrenal Glands and Kidneys: The adrenal glands are unremarkable. There is symmetric enhancement the kidneys without hydronephrosis. There is a left renal cyst. Pancreas and Retroperitoneum: There is fatty infiltration of the pancreas. There is no retroperitoneal adenopathy. Aorta and Major Vessels: There is moderate calcific atherosclerosis of the abdominal aorta and iliac arteries. The aorta is normal in caliber. Bowel, Mesentery and Peritoneal space: Postoperative changes from gastric bypass surgery are noted. There is abundant stool in the colon. There is no bowel obstruction. There is no ascites or mesenteric adenopathy. Abdominal wall and Osseous Structures: There are post surgical changes in the anterior abdominal wall. There are mild degenerative changes of the lumbar spine. IMPRESSION CHEST: 1. Stable right upper lobe pulmonary nodules, likely benign given stability since February 2014. 2. No thoracic lymph adenopathy. ABDOMEN: 1. No metastatic disease in the abdomen or pelvis. 2. Cholelithiasis. Finalized by Bel Ennis M.D. on 02/03/2016 3:44 PM. Dictated by Bel Ennis M.D. on 02/03/2016 3:[address] HEAD WO/W CONTRAST (02/03/2016 1:49 PM) Impressions 1. Prior segmental mandibulectomy, bilateral neck dissection, and flap reconstruction. 2. Increased prominence of right buccal/lip soft tissue thickening and nodularity which extend to the right glossotonsillar sulcus, base of tongue, and palatine tonsil consistent with progression of disease. 3. 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 4. Unchanged right upper lung nodules. Please see same day CT chest for further discussion. By my electronic signature, I attest that I have personally reviewed the images for this examination and formulated the interpretations and opinions expressed in this report Finalized by TRA HANSEN M.D. on 02/03/2016 5:29 PM. Dictated by Tra Willis M.D. on 02/03/2016 3:53 PM. Narrative EXAM: CT HEAD AND CT NECK HISTORY: 60-year-old male, head and neck cancer. TECHNIQUE: Multiple contiguous axial images were obtained of the brain before and following Isovue 300 IV contrast. COMPARISON: CT neck January 05, 2016 FINDINGS: Brain: The ventricles and subarachnoid spaces are normal in size and configuration. There is no midline shift or mass effect. The hunter white matter interfaces are maintained. The basal cisterns are patent. There is no evidence of acute intracranial hemorrhage or extra-axial fluid collection. No abnormal enhancing lesion is identified.The mastoid air cells and visualized paranasal sinuses are well-aerated. Neck: Sinuses and Mastoids: Normal. Suprahyoid Neck: There is redemonstration of prior right oral cavity resection, mandibulectomy, and bilateral neck dissections. There is also been prior flap reconstruction. There is nodular enhancing soft tissue along the buccal surface of the flap reconstruction which extends posteriorly with slight increase in associated bony erosion along the residual posterior right mandibular ramus. There is also new mucosal irregularity along the right glossotonsillar sulcus, base of tongue, and right palatine tonsil. This extends into the right vallecula. Infrahyoid Neck: There is mucosal thickening of the aryepiglottic folds likely from previous radiation therapy. The remainder the infrahyoid larynx, hypopharynx, and trachea are unremarkable. Lymph Nodes: Slight interval enlargement of the right level 5 lymph node which now measures 1.6 x 1.3 x 2.0 cm (series 2G image 67 and series 401b image 75), previously 1.0 x 0.8 x 2.1 cm. Left level 3 lymph node measures 2.3 x 1.3 x 0.7 cm (series 401B image 69 and series 2G image 70), previously 2.1 x 1.1 x 0.6 cm. Parotid and Submandibular Glands: The submandibular glands are surgically absent. Thyroid: Multiple subcentimeter thyroid nodules. Vasculature: Mild calcified atherosclerotic plaque at the carotid bifurcations without evidence of significant stenosis. Osseous Structures: Mandibular bony changes as described above. No additional destructive osseous lesions.. Thoracic inlet: Unchanged right upper lobe pulmonary nodules are identified. Findings were discussed in more detail on same-day CT chest. 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 TECHNIQUE: Multiple contiguous axial images were obtained of the brain before and following Isovue 300 IV contrast. COMPARISON: CT neck January 05, 2016 FINDINGS: Brain: The ventricles and subarachnoid spaces are normal in size and configuration. There is no midline shift or mass effect. The hunter white matter interfaces are maintained. The basal cisterns are patent. There is no evidence of acute intracranial hemorrhage or extra-axial fluid collection. No abnormal enhancing lesion is identified. The mastoid air cells and visualized paranasal sinuses are well-aerated. Neck: Sinuses and Mastoids: Normal. Suprahyoid Neck: There is redemonstration of prior right oral cavity resection, mandibulectomy, and bilateral neck dissections. There is also been prior flap reconstruction. There is nodular enhancing soft tissue along the buccal surface of the flap reconstruction which extends posteriorly with slight increase in associated bony erosion along the residual posterior right mandibular ramus. There is also new mucosal irregularity along the right glossotonsillar sulcus, base of tongue, and right palatine tonsil. This extends into the right vallecula. Infrahyoid Neck: There is mucosal thickening of the aryepiglottic folds likely from previous radiation therapy. The remainder the infrahyoid larynx, hypopharynx, and trachea are unremarkable. Lymph Nodes: Slight interval enlargement of the right level 5 lymph node which now measures 1.6 x 1.3 x 2.0 cm (series 2G image 67 and series 401b image 75), previously 1.0 x 0.8 x 2.1 cm. Left level 3 lymph node measures 2.3 x 1.3 x 0.7 cm (series 401B image 69 and series 2G image 70), previously 2.1 x 1.1 x 0.6 cm. Parotid and Submandibular Glands: The submandibular glands are surgically absent. Thyroid: Multiple subcentimeter thyroid nodules. Vasculature: Mild calcified atherosclerotic plaque at the carotid bifurcations without evidence of significant stenosis. Osseous Structures: Mandibular bony changes as described above. No additional destructive osseous lesions.. Thoracic inlet: Unchanged right upper lobe pulmonary nodules are identified. Findings were discussed in more detail on same-day CT chest. IMPRESSION 1. Prior segmental mandibulectomy, bilateral neck dissection, and flap reconstruction. 2. Increased prominence of right buccal/lip soft tissue thickening and nodularity which extend to the right glossotonsillar sulcus, base of tongue, and palatine tonsil consistent with progression of disease. 3. 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 4. Unchanged right upper lung nodules. Please see same day CT chest for further discussion. By my electronic signature, I attest that I have personally reviewed the images for this examination and formulated the interpretations and opinions expressed in this report Finalized by TRA HANSEN M.D. on 02/03/2016 5:29 PM. Dictated by Tra Willis M.D. on 02/03/2016 3:[address] CHEST W CONTRAST (02/03/2016 1:49 PM)Only the most recent of 2 results within the time period is included. Impressions CHEST: 1.Stable right upper lobe pulmonary nodules, likely benign given stability since February 2014. 2.No thoracic lymph adenopathy. ABDOMEN: 1.No metastatic disease in the abdomen or pelvis. 2.Cholelithiasis. Finalized by Bel Ennis M.D. on 02/03/2016 3:44 PM. Dictated by Bel Ennis M.D. on 02/03/2016 3:[address] CHEST AND ABDOMEN Clinical Indication:Male, 60 years old. Recurrent oropharyngeal cancer. Technique: Multiple contiguous axial images were obtained through the chest and abdomen following the administration of IV contrast material. Portal venous and delayed imaging was obtained. Post processing coronal and sagittal reconstruction images were made from the axial images. IV contrast: Isovue-370 Bowel contrast:None Comparison: CT chest 01/05/2016, PET/CT 02/26/2014. CHEST FINDINGS: Lower Neck: There are unchanged subcentimeter thyroid nodules area there is a punctate calcification in the left thyroid lobe. There are surgical clips in the left neck base. Axilla, Mediastinum and Angie: There is no axillary, mediastinal, or hilar lymphadenopathy. Heart and Great Vessels: Cardiac size is within normal limits. There is coronary artery atherosclerosis. There is no pericardial effusion. The great vessels are normal in caliber. Airway, Lungs and Pleura: The central airways are patent. There is nodular biapical pleural parenchymal fibrosis, unchanged since the prior exam. A 7 mm right apical nodule is stable (series 2, image 10). Adjacent small right upper lobe nodules are stable. No new nodules identified. There is no pleural effusion. Chest Wall and Osseous Structures: There are degenerative changes of the thoracic spine. ABDOMEN FINDINGS: Liver and Biliary system: The liver is stable in size. There is no intrahepatic mass. The portal and hepatic veins are patent. The gallbladder is present. There is cholelithiasis. There is no biliary ductal dilatation. Spleen: The spleen is normal in size. Adrenal Glands and Kidneys: The adrenal glands are unremarkable. There is symmetric enhancement the kidneys without hydronephrosis. There is a left renal cyst. Pancreas and Retroperitoneum: There is fatty infiltration of the pancreas. There is no retroperitoneal adenopathy. Aorta and Major Vessels: There is moderate calcific atherosclerosis of the abdominal aorta and iliac arteries. The aorta is normal in caliber. Bowel, Mesentery and Peritoneal space: Postoperative changes from gastric bypass surgery are noted. There is abundant stool in the colon. There is no bowel obstruction. There is no ascites or mesenteric adenopathy. Abdominal wall and Osseous Structures: There are post surgical changes in the anterior abdominal wall. There are mild degenerative changes of the lumbar spine. 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 Recurrent oropharyngeal cancer. Technique: Multiple contiguous axial images were obtained through the chest and abdomen following the administration of IV contrast material. Portal venous and delayed imaging was obtained. Post processing coronal and sagittal reconstruction images were made from the axial images. IV contrast: Isovue-370 Bowel contrast: None Comparison: CT chest 01/05/2016, PET/CT 02/26/2014. CHEST FINDINGS: Lower Neck: There are unchanged subcentimeter thyroid nodules area there is a punctate calcification in the left thyroid lobe. There are surgical clips in the left neck base. Axilla, Mediastinum and Angie: There is no axillary, mediastinal, or hilar lymphadenopathy. Heart and Great Vessels: Cardiac size is within normal limits. There is coronary artery atherosclerosis. There is no pericardial effusion. The great vessels are normal in caliber. Airway, Lungs and Pleura: The central airways are patent. There is nodular biapical pleural parenchymal fibrosis, unchanged since the prior exam. A 7 mm right apical nodule is stable (series 2, image 10). Adjacent small right upper lobe nodules are stable. No new nodules identified. There is no pleural effusion. Chest Wall and Osseous Structures: There are degenerative changes of the thoracic spine. ABDOMEN FINDINGS: Liver and Biliary system: The liver is stable in size. There is no intrahepatic mass. The portal and hepatic veins are patent. The gallbladder is present. There is cholelithiasis. There is no biliary ductal dilatation. Spleen: The spleen is normal in size. Adrenal Glands and Kidneys: The adrenal glands are unremarkable. There is symmetric enhancement the kidneys without hydronephrosis. There is a left renal cyst. Pancreas and Retroperitoneum: There is fatty infiltration of the pancreas. There is no retroperitoneal adenopathy. Aorta and Major Vessels: There is moderate calcific atherosclerosis of the abdominal aorta and iliac arteries. The aorta is normal in caliber. Bowel, Mesentery and Peritoneal space: Postoperative changes from gastric bypass surgery are noted. There is abundant stool in the colon. There is no bowel obstruction. There is no ascites or mesenteric adenopathy. Abdominal wall and Osseous Structures: There are post surgical changes in the anterior abdominal wall. There are mild degenerative changes of the lumbar spine. IMPRESSION CHEST: 1. Stable right upper lobe pulmonary nodules, likely benign given stability since February 2014. 2. No thoracic lymph adenopathy. ABDOMEN: 1. No metastatic disease in the abdomen or pelvis. 2. Cholelithiasis. Finalized by Bel Ennis M.D. on 02/03/2016 3:44 PM. Dictated by Bel Ennis M.D. on 02/03/2016 3:23 PM. VITAMIN B12 (01/25/2016 12:55 PM) Component Value Range Vitamin B12 1002 (H) 180-914 PG/ML Specimen Blood TSH WITH FREE T4 REFLEX (01/25/2016 12:55 PM) Component Value Range TSH 3.829 0.35-5.00 MCU/ML Specimen Blood IRON + BINDING CAPACITY + %SAT (01/25/2016 12:55 PM) Component Value Range Iron 37 (L) 50-185 MCG/DL Iron Binding-TIBC 335 270-380 MCG/DL % Saturation 11 (L) 28-42 % Specimen Blood FOLATE, SERUM (01/25/2016 12:55 PM) Component Value Range Serum Folate >24.0Comment: NOTE NEW REFERENCE RANGES >3.9 NG/ML Specimen Blood FERRITIN (01/25/2016 12:55 PM) Component Value Range Ferritin 61 30-300 NG/ML Specimen Blood NM PET SCAN TORSO (SKULL-THIGHS) (01/16/2016 11:57 AM) Impressions 1. Postsurgical changes of prior mandibulectomy, neck dissection, and flap reconstruction with increased metabolic activity about the right mandibular body , and diffusely involving the premaxillary soft tissues and upper lip. Diagnostic considerations include tumor recurrence, infection, or postsurgical changes of reconstruction and revision. 2. Hypermetabolic right level 5 and left supraclavicular lymph nodes concerning for gene metastases. Additional foci of bilateral neck increased FDG uptake as detailed above may represent additional sites of gene metastatic disease. 3. No hypermetabolic thoracic adenopathy. Approved by Reshma Valverde M.D. on 01/16/2016 3:55 PM By my electronic signature, I attest that I have personally reviewed the images for this examination and formulated the interpretations and opinions expressed in this report Finalized by Cedrick Ramirez M.D. on 01/16/2016 5:56 PM. Dictated by Reshma Valverde M.D. on 01/16/2016 1:09 PM. Narrative PET/CT NECK, CHEST, ABDOMEN AND PELVIS RADIOPHARMACEUTICAL:16.3 mCi F-18 Fluorodeoxyglucose (FDG) IV. TECHNIQUE:Beginning approximately 60 minutes after tracer administration, routine whole body PET/CT imaging was performed from the level of the base of the skull to the upper thighs.PET images were reviewed in standard orthogonal projections.Low dose non-contrast CT imaging was performed for attenuation correction and localization purposes. BLOOD GLUCOSE LEVEL AT THE TIME OF RADIOPHARMACEUTICAL ADMINISTRATION:80 mg/ dl CLINICAL HISTORY:60-year-old male. 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 Completion of chemoradiation 06/11/2014. COMPARISON: PET/CT February 26, 2014, CT of the neck and chest January 05, 2016. FINDINGS: The current mean hepatic SUV is 1.77, maximum SUV 2.78. The current mean cardiac blood pull SUV is 1.68, maximum 2.21.Previous mean hepatic SUV was 2.1, maximum 3.6. Head/Neck: There are postsurgical changes of prior mandibulectomy and bilateral neck dissection with osteocutaneous flap reconstruction. There is diffuse increased metabolic activity in the maxillary and upper lip soft tissues, as well as the right mandibulectomy osteotomy site, the right mandibular body, and adjacent right perimandibular soft tissues demonstrating maximum SUV 15.6 ( index 137). There is a hypermetabolic right level 5 lymph node with maximum SUV 12.3 (index 203). There is a focal increased FDG uptake posterior lateral to the left oropharyngeal wall, maximum SUV 6.24 (index 157). There is also focal FDG uptake lateral to the right vallecula, maximum SUV 4.77 (index 190). A small focus of increased FDG uptake adjacent to the right mandibular ramus may be vascular. There is a low density lesion with eccentric calcification in the left lobe of the thyroid with no associated abnormal FDG uptake. Chest: There is a small, 0.7 x 0.7 left supraclavicular lymph node demonstrating mild increased FDG uptake with maximum SUV 3.75 (index 262). No hypermetabolic mediastinal or hilar lymph nodes are identified. There is biapical scarring with stable tiny nodules in the right lung apex on CTAC images 98 and 99, as well as a stable right upper lobe nodules on image 124 and left lower lobe perifissural nodule on image 135. These pulmonary nodules are too small to characterize by PET. Abdomen/Pelvis: No suspicious hypermetabolic lesions are seen within the abdomen or pelvis. Physiological activity is noted within the kidneys and bladder. Osseous Structures: No suspicious hypermetabolic osseous lesions are seen. Additional significant low dose CT findings: There are postsurgical changes about the stomach. Cholelithiasis is again seen. There is coronary artery calcification. Aortobiiliac atherosclerotic calcification is noted. There is a large amount of retained fecal material throughout the colon. There is mild prostate gland enlargement. Postsurgical changes for flap reconstruction are noted in visualized portions of the proximal right thigh. The uncorrected PET images demonstrate no additional abnormality. 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 TECHNIQUE: Beginning approximately 60 minutes after tracer administration, routine whole body PET/CT imaging was performed from the level of the base of the skull to the upper thighs. PET images were reviewed in standard orthogonal projections. Low dose non-contrast CT imaging was performed for attenuation correction and localization purposes. BLOOD GLUCOSE LEVEL AT THE TIME OF RADIOPHARMACEUTICAL ADMINISTRATION: 80 mg/dl CLINICAL HISTORY: 60-year-old male. 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 Completion of chemoradiation 06/11/2014. COMPARISON: PET/CT February 26, 2014, CT of the neck and chest January 05, 2016. FINDINGS: The current mean hepatic SUV is 1.77, maximum SUV 2.78. The current mean cardiac blood pull SUV is 1.68, maximum 2.21. Previous mean hepatic SUV was 2.1 , maximum 3.6. Head/Neck: There are postsurgical changes of prior mandibulectomy and bilateral neck dissection with osteocutaneous flap reconstruction. There is diffuse increased metabolic activity in the maxillary and upper lip soft tissues, as well as the right mandibulectomy osteotomy site, the right mandibular body, and adjacent right perimandibular soft tissues demonstrating maximum SUV 15.6 ( index 137). There is a hypermetabolic right level 5 lymph node with maximum SUV 12.3 (index 203). There is a focal increased FDG uptake posterior lateral to the left oropharyngeal wall, maximum SUV 6.24 (index 157). There is also focal FDG uptake lateral to the right vallecula, maximum SUV 4.77 (index 190). A small focus of increased FDG uptake adjacent to the right mandibular ramus may be vascular. There is a low density lesion with eccentric calcification in the left lobe of the thyroid with no associated abnormal FDG uptake. Chest: There is a small, 0.7 x 0.7 left supraclavicular lymph node demonstrating mild increased FDG uptake with maximum SUV 3.75 (index 262). No hypermetabolic mediastinal or hilar lymph nodes are identified. There is biapical scarring with stable tiny nodules in the right lung apex on CTAC images 98 and 99, as well as a stable right upper lobe nodules on image 124 and left lower lobe perifissural nodule on image 135. These pulmonary nodules are too small to characterize by PET. Abdomen/Pelvis: No suspicious hypermetabolic lesions are seen within the abdomen or pelvis. Physiological activity is noted within the kidneys and bladder. Osseous Structures: No suspicious hypermetabolic osseous lesions are seen. Additional significant low dose CT findings: There are postsurgical changes about the stomach. Cholelithiasis is again seen. There is coronary artery calcification. Aortobiiliac atherosclerotic calcification is noted. There is a large amount of retained fecal material throughout the colon. There is mild prostate gland enlargement. Postsurgical changes for flap reconstruction are noted in visualized portions of the proximal right thigh. The uncorrected PET images demonstrate no additional abnormality. IMPRESSION 1. Postsurgical changes of prior mandibulectomy, neck dissection, and flap reconstruction with increased metabolic activity about the right mandibular body , and diffusely involving the premaxillary soft tissues and upper lip. Diagnostic considerations include tumor recurrence, infection, or postsurgical changes of reconstruction and revision. 2. Hypermetabolic right level 5 and left supraclavicular lymph nodes concerning for gene metastases. Additional foci of bilateral neck increased FDG uptake as detailed above may represent additional sites of gene metastatic disease. 3. No hypermetabolic thoracic adenopathy. Approved by Reshma Valverde M.D. on 01/16/2016 3:55 PM By my electronic signature, I attest that I have personally reviewed the images for this examination and formulated the interpretations and opinions expressed in this report Finalized by Cedrick Ramirez M.D. on 01/16/2016 5:56 PM. Dictated by Reshma Valverde M.D. on 01/16/2016 1:09 PM. POC CREATININE, RAD (01/05/2016 4:52 PM) Component Value Range Creatinine, POC 0.8 0.4-1.24 MG/DL
== END 2016-04-02 16:00 | disposition home or self-care (01) ==
LOC: WOUNDCARE 13:33
PROVIDERS: ATTEND Surgery
DX: S01.401A Unspecified open wound of right cheek and temporomandibular area, initial encounter (principal); C41.1 Malignant neoplasm of mandible; L59.9 Disorder of the skin and subcutaneous tissue related to radiation, unspecified
CPT/HCPCS: 99213

== ENCOUNTER 2016-04-05 13:50 | Inpatient (IN) | payer OTHER ==
[~2016-04-05] VITALS: Ht 180.3 cm; Wt 48.3 kg
--- OUTSIDE RECORDS SUMMARY | 2016-04-05 13:58 | XMS REPORT | Continuity of Care Document ---
Author Author [facility] Organization [facility] Address Unknown Phone Unavailable Care Team Providers Care Metaphysician Name Role Phone Self, Steven PCP [phone] Source Comments Some departments are not documenting in the electronic medical record. If you do not see the information that you expected, contact Release of Information in the Health Information Management department at [phone] for further assistance in locating additional records.[facility] Active Allergies and Adverse Reactions Allergen Noted [...] Active mL oral solution feeding tube 17 metoprolol tartrate 0.5 Tabs twice daily. 03/21/19 [...] 24 hours for 10 days. 17 17 metoclopramide (REGLAN) 1 10 mL four times daily as 473 mL 3 04/04/19 Active mg/mL oral solution needed for Nausea, 17 Vomiting or Other.... Give via feeding tube montelukast (SINGULAIR) Take 10 mg by mouth [...] hours as needed 17 ued for Pain. metoclopramide HCl 10 mL four times daily as 03/21/19 04/04/19 Discontin (REGLAN) 1 mg/mL oral needed for Nausea, 17 17 ued solution Vomiting or Other.... Give via feeding tube oxyCODONE (ROXICODONE) 1 5-10 mL every 4 hours as 473 mL 0 03/21/19 03/21/19 Discontin mg/mL oral solution needed for Pain Earliest 17 17 ued Fill Date: 03/21/16 give via feeding tube metroNIDAZOLE (#) Take 10 mL by mouth four 280 mL 0 03/28/19 (FLAGYL) 50 mg/mL oral times daily for 7 days. 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 Pressure ulcer to coccyx. Home health to assist with wound care. Tracheostomy care ([facility]) 03/19/2016 Failure to thrive (0-17) 03/19/2016 Protein-calorie malnutrition, severe ([facility]) 03/19/2016 Last Assessment & Plan: TPN in addition to J-tube feedings as patient continues to suffer from malnutrition. Jejunostomy tube leak ([facility]) 03/19/2016 Status post insertion of percutaneous endoscopic gastrostomy (PEG) tube (HCC) Dislodged jejunostomy tube 03/19/2016 Generalized abdominal pain [...] feeding despite J-tube replacement. We will consult mask layout designer to assist with TPN in the home. [...] squamous cell carcinoma, p16 immunostain performed at [facility] on specimen 2 is negative 02/26/14: PET- [...] weekly cisplatin and concurrent radiation therapy (in [facility]) , Completed 06/11/2014. 12/27/2015- Right Retromolar [...] Recent Encounters Date Type Specialty Providers Description 04/05/2016 Orders Only Oncology Blake, Sanjeev, MD Head and neck cancer (HCC) (Primary Dx) 04/04/2016 Documentation Oncology Norma Garcia 04/04/2016 Refill Oncology Sanjeev Lozano MD Head and neck cancer (HCC) (Primary Dx); Nausea 04/03/2016 Telephone Oncology Sanjeev Lozano MD Appointment - reschedule appointment 04/02/2016 Documentation Oncology Norma Garcia 03/29/2016 Office [...] Telephone Oncology Triny Alvarenga RN Swelling 03/19/2016 [facility] Linus Richter MD Jejunostomy tube leak - Encounter Marleny Colin DO (HCC) 03/21/2016 Lynne Espinoza RN Melvin, Lorie Collins, Zachary S, MD 03/19/2016 Office Visit Otolaryngology Nohelia Ibarra MD Tracheostomy care (HCC) (Primary Dx) 03/19/2016 Ancillary Radiology Outpatient, Radiologist Diagnosis unknown Orders (Primary Dx) 03/19/2016 Ancillary Radiology Outpatient, Radiologist Orders 03/15/2016 [facility] Sanjeev Lozano MD Malignant neoplasm of [...] 03/11/2016 Refill Oncology Sanjeev Lozano MD 03/07/2016 [facility] Oncology Nohelia Daly APRN Encounter 03/07/2016 [...] Nohelia Daly APRN 02/28/2016 Anesthesia Kristina Causey, SRNA Event 02/28/2016 Surgery Nohelia Ibarra MD REVISION OF TRACHEOSTOMY, DIRECT LARYNGOSCOPY 02/27/2016 Prep for Case Adryan Mayorga MD 02/26/2016 Surgery Narsin Avila MD Canceled TRACHEOSTOMY 02/25/2016 Prep for Case Pauline Schroeder MD 02/24/2016 [facility] Hematology and Oncology Hector Best MD Dysphagia - Encounter Arnulfo Burns MD 03/02/2016 Rachel Monzon MD Werner, Gregg, MD 02/22/2016 [facility] Oncology Nohelia Daly APRN No Show [...] APRN Head and neck cancer (HCC) 02/15/2016 Hospital Oncology Sanjeev Lozano MD Encounter 02/15/2016 Hospital Oncology Sanjeev Lozano MD Encounter 02/15/2016 [facility] Sanjeev Lozano MD Oral cancer (HCC) Encounter 02/15/2016 [facility] Jose Suarez MD Cancer of oral [...] APRN 02/13/2016 Documentation Oncology Kymberly Alvarez 02/07/2016 [facility] Radiology Sanjeev Lozano MD Encounter Micheal Soto RN Torline, Kit Collins, Zachary S, MD 02/03/2016 Hospital Radiology Sanjeev Lozano MD Encounter 02/01/2016 Screening Form 01/27/2016 Telephone Oncology Sanjeev Lozano MD Appointment Request 01/27/2016 Orders Only Oncology Sanjeev Lozano MD Head and neck cancer (HCC) (Primary Dx) 01/25/2016 Office Visit Oncology Nohelia Ibarra MD Leukocytosis, unspecified Sanjeev Lozano MD [...] MD Oral cancer (HCC) (Primary Dx) 01/16/2016 [facility] Radiology Jf Eid PA-C Encounter 01/16/2016 Screening Form 01/05/2016 [facility] Radiology Jf Eid PA-C Encounter 01/05/2016 [...] Taken Blood Pressure 146/86 03/29/2016 1:58 PM [facility] Pulse 104 03/29/2016 1:58 PM [facility] Temperature 36.7 C (98 F) 03/29/2016 1:58 PM [facility] Respiratory Rate 20 03/29/2016 1:58 PM [facility] Height 1.803 m (5' 11") 03/29/2016 1:58 PM [facility] Weight 45.632 kg (100 lb 9.6 oz) 03/29/2016 1:58 PM [facility] Body Mass Index 14.04 03/29/2016 1:58 PM [facility] Oxygen Saturation 98% 03/28/2016 2:57 PM [facility] Plan of Care Date Type Specialty Providers Description 04/18/2016 Appointment Oncology Sanjeev Lozano MD [address] [place] [address] [phone] (Fax) 04/18/2016 Appointment Radiology Sanjeev Lozano MD [address] [place] [address] [phone] (Fax) 04/18/2016 Appointment Oncology Sanjeev Lozano MD [address] [place] [address] [phone] (Fax) Nohelia Zee, APPLIANCE SERVICE SUPERVISOR [address] [place] [address] [phone] (Fax) 04/18/2016 Appointment Oncology Sanjeev Lozano MD [address] [place] [address] [phone] (Fax) 04/26/2016 Appointment General Surgery Health Maintenance Due Date Last Done Comments Hepatitis C Screening 1955 Physical (Comprehensive) 1960 Exam Pertussis Vaccine 1964 Tetanus Vaccine 1970 Colorectal Cancer 2003 Screening Shingles Vaccine 2013 Influenza Vaccine 10/27/2015 Procedures from Last 3 Months Procedure Name Priority Date/Time Associated Diagnosis Comments TELEMETRY STRIPS-SCAN 03/05/2016 Results for this 1:54 PM [facility] procedure are in the results section. OPEN INSERTION 02/28/2016 Oral cancer (HCC) GASTROSTOMY TUBE 9:35 AM [facility] REVISION OF TRACHEOSTOMY, 02/28/2016 Oral cancer (HCC) DIRECT LARYNGOSCOPY 9:35 AM [facility] ECG-SCAN 02/16/2016 Results for this 7:29 AM [facility] procedure are in the results section. ECG-SCAN 02/16/2016 Results for this 7:29 AM [facility] procedure are in the results section. Results [...] - Tue Mar 20, 2016 1:29 PM [facility] ABDOMEN AP ONLY CLINICAL INDICATION: Fluoroscopic Tube [...] in size without focal lesion. There is kcdb-zy-ctyyfsyn fatty atrophy of the pancreas. Degenerative glands [...] Results - SatMar 19, 2016 11:[address] ABDOMEN AND PELVIS Clinical Indication: 60-year-old [...] in size without focal lesion. There is okiq-ce-zkzslekh fatty atrophy of the pancreas. Degenerative glands [...] Results - SatMar 21, 2016 4:08 PM [facility] Procedure: Aborted gastrostomy tube Indication: Dysphagia. Medications: [...] Range Color,UA YELLOW Turbidity,UA CLEAR CLEAR-CLEAR Specific [place]-Urine 1.025 1.003-1.035 pH,UA 5.5 5.0-8.0 Protein,UA NEG [...] AM) Component Value Range PATHOLOGY REPORT [email or web address] Julia Jarvis MD, PhD, Director of Anatomic Pathology Department of Pathology and Laboratory Medicine [address] [place] [phone] Surgical Pathology Office: [phone] SURGICAL PATHOLOGY REPORT NAME: ELICEO ALFARO SURG PATH #: [id number] MR #: [id number] SPECIMEN CLASS: SR BILLING #: [id number] ALT ID #: LOCATION: [facility] DATE OF PROCEDURE: 02/28/2016 AGE: 60 SEX: [...] scarring. The specimen is serially sectioned and medical customer service representative sections are submitted in cassette A1. [facility]2016 [facility] NECK W/CONTRAST (02/24/2016 2:21 PM)Only the [...] Results - SatFeb 29, 2016 8:[address] Neck with Contrast Clinical Indication: Male, [...] male with head and neck cancer, chemotherapy. ADMINISTRATIVE PROGRAM SPECIALIST:Dr. Usha Looney MEDICATIONS:Versed 2 mg IV, Fentanyl 100 mcg IV, 20 mL lidocaine 2% CATHETER: 8 [place] 23 cm PowerPort PUNCTURE SITE: Right internal [...] The needle was exchanged for a 5 [place] coaxial dilator. Attention was turned to the [...] Results - SatFeb 08, 2016 8:50 AM [facility] CHEST PORT PLACEMENT WITH ULTRASOUND AND FLUORO GUIDANCE DATE: 02/07/2016 CLINICAL INDICATION: 60-year-old male with head and neck cancer, chemotherapy. ADMINISTRATIVE PROGRAM SPECIALIST: Dr. Usha Looney MEDICATIONS: Versed 2 mg IV, Fentanyl 100 mcg IV, 20 mL lidocaine 2% CATHETER: 8 [place] 23 cm PowerPort PUNCTURE SITE: Right internal [...] The needle was exchanged for a 5 [place] coaxial dilator. Attention was turned to the [...] Results - SatFeb 03, 2016 3:[address] CHEST AND ABDOMEN Clinical Indication: Male, [...] Results - SatFeb 03, 2016 5:32 PM [facility] EXAM: CT HEAD AND CT NECK HISTORY: [...] Results - SatFeb 03, 2016 3:[address] CHEST AND ABDOMEN Clinical Indication: Male, [...] - Mon Jan 16, 2016 5:59 PM [facility] PET/CT NECK, CHEST, ABDOMEN AND PELVIS RADIOPHARMACEUTICAL: [...]
[2016-04-05] MEDS ORDERED: NS IV 1000 ML 1,000 ML IV ONE (15:08)
--- NOTE | 2016-04-05 15:38 | ED Respiratory ---
General Chief Complaint: Respiratory Problems Stated Complaint: SOB Nursing Triage Note: PT REPORTS THAT HE HAS INCREASED SOA SINCE YESTERDAY. PT IS CURRENTLY BEING TX FOR ORAL CA AT [facility] AND HAS A TRACH. Source: patient Exam Limitations: clinical condition History of Present Illness Time seen by provider: 14:50 Initial Comments Here with report of shortness of air at home. 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 Patient has moderate to significant amount of cancer with defect to the face on the left side. He does have a trach in place. Reports rattling cough per family and rattling breathing. No report of fever or vomiting. Patient is on TPN. He is under the care of oncology in [place], [place]. Patient unable to voice concerns due to underlying medical condition but does not a firm. Patient is very drowsy and family answers most of his questions for him. Timing/Duration: week, getting worse Severity: moderate Prior Episodes/Possible Cause: occasional episodes Modifying Factors: Worse With Coughing, Improves With Rest Associated Symptoms: No fever/chills, shortness of breath wheezing Allergies and Home Medications Allergies Coded Allergies: No Known Drug Allergies (Unverified , 08/14/10) Home Medications Aspirin 325 Mg Tab 325 MG PO DAILY (Reported) Calcium Carbonate/Vitamin D3 1 Each Tablet 1 EACH PO DAILY (Reported) Iron,Carbonyl 45 Mg Tablet 65 MG PO DAILY (Reported) Montelukast Sodium 10 Mg Tab 10 MG PO DAILY (Reported) Multivitamins 1 Each Capsule 1 EACH PO DAILY (Reported) Pantoprazole Sodium 40 Mg Suspdr.pkt 40 MG PO DAILY (Reported) Constitutional: see HPINo chills, No fever EENTM: see HPI Respiratory: cough short of breath wheezing Cardiovascular: No chest pain, No edema Gastrointestinal: No abdominal pain, No nausea, No vomiting Genitourinary: no symptoms reported Musculoskeletal: no symptoms reported Skin: see HPI lesions other (cancer/the face and jaw) Psychiatric/Neurological: See HPI All Other Systems Reviewed Negative Unless Noted: Yes Past Olfgmem-Yiqhiy-Xyyrin Hx Patient Social History Alcohol Use: Denies Use Recreational Drug Use: No Smoking Status: Never a Smoker 2nd Hand Smoke Exposure: No Recent Foreign Travel: No Contact w/Someone Who Travel: No Recent Infectious Disease Expo: No Recent Hopitalizations: Yes Seasonal Allergies Seasonal Allergies: No Surgeries HX Surgeries: Yes (FACIAL (ORAL), JTUBE, PORT PLACEMENT) Surgeries: Abdominal, Tracheostomy Respiratory Hx Respiratory Disorders: Yes (TRACH) Cardiovascular Hx Cardiac Disorders: Yes Cardiac Disorders: Hypertension Neurological Hx Neurological Disorders: No Genitourinary Hx Genitourinary Disorders: No Gastrointestinal Hx Gastrointestinal Disorders: No Musculoskeletal Hx Musculoskeletal Disorders: Yes Endocrine Hx Endocrine Disorders: No HEENT HX ENT Disorders: No Cancer Hx Cancer: Yes Cancer: Oral Psychosocial Hx Psychiatric Problems: No Reviewed Nursing Assessment Reviewed/Agree w Nursing PMH: Yes Family Medical History Significant Family History: No Pertinent Family Hx Physical Exam Vital Signs Vital Sign - Last 12Hours 04/05/16 14:10 Temp 98.4 Pulse 111 Resp 18 B/P 127/69 Pulse Ox 96 O2 Delivery Room Air Capillary Refill : Less Than 3 Seconds General Appearance: WD/WN no apparent distress HEENT: PERRL/EOMI pharynx normal Neck: supple other (trach noted. Has oral cancer extending into the mouth and jaw.) Respiratory: lungs clear normal breath sounds Cardiovascular: no murmur tachycardia Gastrointestinal: soft tenderness (near area of J-tube) Extremities: non-tender normal inspection Neurologic/Psychiatric: motor weakness (global) other (very drowsy but does not do questions.) Skin: normal color warm/dry Progress/Results/Core Measures Results/Orders Lab Results Laboratory Tests Test 04/05/16 15:50 Range/Units Alanine Aminotransferase (ALT/SGPT) 21 0-55 U/L Albumin 3.0 L 3.2-4.5 G/DL Alkaline Phosphatase 87 40-136 U/L Anion Gap 7 5-14 MMOL/L Aspartate Amino Transf (AST/SGOT) 24 5-34 U/L BUN/Creatinine Ratio 27 Band Neutrophils 4 % Basophils # (Auto) 0.0 0.0-0.1 10^3/uL Basophils % (Manual) 0 % Basophils (%) (Auto) 0 0-10 % Blood Morphology Comment NORMAL Blood Urea Nitrogen 17 7-18 MG/DL Calcium Level 10.1 8.5-10.1 MG/DL Carbon Dioxide Level 26 21-32 MMOL/L Chloride Level 101 98-107 MMOL/L Creatinine 0.64 0.60-1.30 MG/DL Eosinophils # (Auto) 0.0 0.0-0.3 10^3/uL Eosinophils % (Manual) 0 % Eosinophils (%) (Auto) 0 0-10 % Estimat Glomerular Filtration Rate > 60 Glucose Level 93 70-105 MG/DL Hematocrit 33 L 40-54 % Hemoglobin 10.8 L 13.3-17.7 G/DL Lactic Acid Level 1.5 0.5-2.0 MMOL/L Lymphocytes # (Auto) 0.9 L 1.0-4.0 X 10^3 Lymphocytes % (Manual) 5 % Lymphocytes (%) (Auto) 4 L 12-44 % Mean Corpuscular Hemoglobin 28 25-34 PG Mean Corpuscular Hemoglobin Concent 32 32-36 G/DL Mean Corpuscular Volume 87 80-99 FL Mean Platelet Volume 10.0 7.4-10.4 FL Monocytes # (Auto) 1.7 H 0.0-1.0 X 10^3 Monocytes % (Manual) 4 % Monocytes (%) (Auto) 8 0-12 % Neutrophils # (Auto) 18.8 H 1.8-7.8 X 10^3 Neutrophils % (Manual) 87 % Neutrophils (%) (Auto) 88 H 42-75 % Platelet Count 421 H 130-400 10^3/uL Potassium Level 4.1 3.6-5.0 MMOL/L Red Blood Count 3.82 L 4.35-5.85 10^6/uL Red Cell Distribution Width 14.3 10.0-14.5 % Sodium Level 134 L 135-145 MMOL/L Total Bilirubin 0.8 0.1-1.0 MG/DL Total Protein 6.3 L 6.4-8.2 G/DL White Blood Count 21.3 H 4.3-11.0 10^3/uL Micro Results Microbiology 04/05/16 Influenza Types A,B Antigen (GASPER) - Final, Complete My Orders Orders-SHERITA NEWELL MD Cbc With Automated Diff (04/05/16 15:08) Comprehensive Metabolic Panel (04/05/16 15:08) Blood Culture (04/05/16 15:08) Influenza A And B Antigens (04/05/16 15:08) Chest Pa/Lat (2 View) (04/05/16 15:08) Saline Lock/Iv-Start (04/05/16 15:08) Ns Iv 1000 Ml (Sodium Chloride 0.9%) (04/05/16 15:08) Lactic Acid Analyzer (04/05/16 15:08) Manual Differential (04/05/16 15:50) Albuterol/Ipra Inhalation Soln (Duoneb I (04/05/16 17:31) Albuterol/Ipra Inhalation Soln (Duoneb I (04/05/16 17:45) Levofloxacin 750 Mg/150 Ml Iv (Levaquin (04/05/16 17:35) Svn Sm Volume Nebulizer Rt-Rfs (04/05/16 17:35) Medications Given in ED Current Medications Medications Dose Ordered Sig/Phillip Route Start Time Stop Time Status Last Admin Dose Admin Albuterol/ Ipratropium 3 ml STK-MED ONCE .ROUTE 04/05/16 17:31 04/05/16 17:33 DC 04/05/16 17:33 3 ML Sodium Chloride 1,000 ml @ 0 mls/hr Q0M ONCE IV 04/05/16 15:08 04/05/16 15:11 DC 04/05/16 16:08 1,000 MLS/HR Vital Signs/I&O Vital Sign - Last 12Hours 04/05/16 04/05/16 14:10 17:34 Temp 98.4 Pulse 111 Resp 18 B/P 127/69 Pulse Ox 96 97 O2 Delivery Room Air Blood Pressure Mean: 88 Progress Note : Progress Note Seen and evaluated. Port access. Normal saline 1 L bolus. Labs and chest x- ray ordered. Patient has normal O2 saturations without any respiratory difficulty noted. Monitor patient. 1724: Patient is noted to have leukocytosis in the setting of immunomodulators/chemotherapy due to the oral cancer that his advanced age and inoperable currently. He is still tachycardic and dehydrated. He has responded to suctioning briefly and to breathing treatments. He has some dyspnea but not hypoxia. Due to the leukocytosis, we will initiate antibiotics. We did have a long and difficult but honest discussion about his course of therapy. They are continuing to pursue chemotherapy but it appears to be failing. The patient does admit to understanding that and is currently thinking more about comfort and quality versus longevity. They would like to pursue antibiotics and rehydration here if possible versus transfer to . This seems reasonable in the setting of the patient's current condition. Patient normally is on TPN. He does not have his TPN here. We can continue fluid replacement therapy and pain control and potentially restart TPN tomorrow. This was discussed with Dr. Evans who agrees to admission inpatient status. Requesting consult from oncology. Patient has history of Dr. Dow and I will consult and for assistance as well. Patient and family are in agreement with plan. We will consult palliative care in the morning to discuss comfort concerns and continue therapy as well. I did discuss with the patient and family regarding resuscitation status. Patient is requesting DO NOT RESUSCITATE and this will be honored. Diagnostic Imaging Diagonstic Imaging: Xray Plain Films/CT/US/NM/MRI: chest Comments NAME: ELICEO SINGLETON [facility] REC#: [id number] PT STATUS: REG ER : 1955 PHYSICIAN: SHERITA NEWELL MD ADMIT DATE: 04/05/16/ER Signed Date of Exam: 04/05/16 CHEST PA/LAT (2 VIEW) INDICATION: Shortness of breath, history of head and neck cancer. Compared 08/14/2010. FINDINGS: There is substantial symmetrical pulmonary hyperinflation with flattening of the diaphragms and expansion of the retrosternal airspaces. There is also likely cachectic body habitus. This probably accounts for the relative increased density of the ribs owing to the lucent lungs and the paucity of overlying soft tissues. No effusion or pneumothorax. Trach tube is above the cecilia. Heart size within normal limits. IMPRESSION: Clear markedly hyperexpanded lungs with radiographic features suggestive of marked interval weight loss and a cachectic body habitus when compared to the study of 2010. No convincing evidence for focal pneumonia, effusion or pneumothorax. Dictated by: Dictated on workstation # [id number] Dict: 04/05/16 1633 Trans: 04/05/16 1650 KB [id number] Interpreted by: ZORAIDA ZURITA Electronically signed by:ZORAIDA ZURITA 04/05/16 1653 Departure Communication Time/Spoke to Admitting Phy: 17:24 Impression Impression: Primary Impression: Primary malignant neoplasm of oral cavity Additional Impressions: Dyspnea Qualified Code: R06.02 - Shortness of breath Leukocytosis Qualified Code: D72.825 - Bandemia Disposition: ADMITTED INPATIENT Condition: Stable Decision to Admit Reason: Admit from ER (General) Decision to Admit/Date: Apr 05, 2016 Time/Decision to Admit Time: 17:24 Departure-Patient Inst. Referrals: LANE ROMERO MD (PCP/Family) Primary Care Physician SHERITA NEWELL MD Apr 05, 2016 15:38
[2016-04-05 16:02] LABS: BASOPHILS % (AUTO) 0 % (0-10); EOSINOPHILS % (AUTO) 0 % (0-10); LYMPHOCYTES # (AUTO) 0.9 X 10^3 (1.0-4.0); LYMPHOCYTES % (AUTO) 4 % (12-44); MEAN CORPUSCULAR HEMOGLOBIN 28 PG (25-34); MEAN CORPUSCULAR HGB CONC 32 G/DL (32-36); MEAN CORPUSCULAR VOLUME 87 FL (80-99); MONOCYTES # (AUTO) 1.7 X 10^3 (0.0-1.0); MONOCYTES % (AUTO) 8 % (0-12); NEUTROPHILS # (AUTO) 18.8 X 10^3 (1.8-7.8); NEUTROPHILS % (AUTO) 88 % (42-75); PLATELET COUNT 421 10^3/uL (130-400); RED BLOOD COUNT 3.82 10^6/uL (4.35-5.85); RED CELL DISTRIBUTION WIDTH 14.3 % (10.0-14.5); WHITE BLOOD COUNT 21.3 10^3/uL (4.3-11.0)
[2016-04-05 16:19] LABS: BAND NEUTROPHILS 4 %; BASOPHILS % (MANUAL) 0 %; EOSINOPHILS % (MANUAL) 0 %; LYMPHOCYTES % (MANUAL) 5 %; NEUTROPHILS % (MANUAL) 87 %
[2016-04-05 16:22] LABS: ALANINE AMINOTRANSFERASE 21 U/L (0-55); ANION GAP 7 MMOL/L (5-14); ASPARTATE AMINO TRANSFERASE 24 U/L (5-34); BILIRUBIN,TOTAL 0.8 MG/DL (0.1-1.0); BLOOD UREA NITROGEN 17 MG/DL (7-18); BUN/CREATININE RATIO 27; CALCIUM 10.1 MG/DL (8.5-10.1); CARBON DIOXIDE 26 MMOL/L (21-32); CHLORIDE 101 MMOL/L (98-107); CREATININE SERUM 0.64 MG/DL (0.60-1.30); GFR ESTIMATED > 60; GLUCOSE 93 MG/DL (70-105); POTASSIUM 4.1 MMOL/L (3.6-5.0); SODIUM 134 MMOL/L (135-145); TOTAL PROTEIN 6.3 G/DL (6.4-8.2)
--- NOTE | 2016-04-05 16:43 | Diagnostic Imaging Report ---
INDICATION: Shortness of breath, history of head and neck cancer. Compared 08/14/2010. FINDINGS: There is substantial symmetrical pulmonary hyperinflation with flattening of the diaphragms and expansion of the retrosternal airspaces. There is also likely cachectic body habitus. This probably accounts for the relative increased density of the ribs owing to the lucent lungs and the paucity of overlying soft tissues. No effusion or pneumothorax. Trach tube is above the cecilia. Heart size within normal limits. IMPRESSION: Clear markedly hyperexpanded lungs with radiographic features suggestive of marked interval weight loss and a cachectic body habitus when compared to the study of 2010. No convincing evidence for focal pneumonia, effusion or pneumothorax. Dictated by: Dictated on workstation # [id number]
[2016-04-05] MEDS ORDERED: RT-ALBUTEROL/IPRATROPIUM 3 ML (DUONEB) VIAL ONE (17:31)
[2016-04-05] MEDS ORDERED: LEVOFLOXACIN 750 MG/150 ML IV 150 ML IV STA (17:35)
[2016-04-05] MEDS ORDERED: RT-ALBUTEROL/IPRATROPIUM 3 ML (DUONEB) VIAL INH ONE (17:45)
[2016-04-05] MEDS ORDERED: TPN IV SCH (19:00)
[2016-04-05] MEDS ORDERED: morphine INJ 10 MG/ML 1ML (SYR OR VIAL) ONE (19:09)
[2016-04-05] MEDS ORDERED: morphine INJ 5 MG/ML 1 ML VIAL IVP ONE (19:15)
[2016-04-05] MEDS ORDERED: morphine INJ 10 MG/ML 1ML (SYR OR VIAL) IV ONE (19:15)
[2016-04-05 19:16] LABS: BILIRUBIN,URINE NEGATIVE (NEGATIVE); KETONES,URINE 1+ (NEGATIVE); LEUKOCYTE ESTERASE ,URINE 1+ (NEGATIVE); NITRITE,URINE NEGATIVE (NEGATIVE); PH,URINE 6 (5-9); PROTEIN,URINE 1+ (NEGATIVE); UROBILINOGEN,URINE NORMAL (NORMAL)
[2016-04-05 19:41] LABS: CALCIUM OXALATE CRYSTALS,UR FEW /LPF; SQUAMOUS EPITHELIAL CELL,UR RARE /HPF
[2016-04-05] MEDS ORDERED: CATHETER FLUSH 10 ML SYR IV PRN (19:45)
[2016-04-05 20:00] VITALS: BP 137/70
[2016-04-05] MEDS: CEFEPIME 2 GM/NS 50 ML IVPB IV SCH ×2 (20:19)
[2016-04-05] MEDS: AA 4.25% W/LYTES IN D5W IV SOL 1,000 ML IV SCH (20:19)
[2016-04-05] MEDS: morphine INJ 10 MG/ML 1ML (SYR OR VIAL) IV PRN ×2 (20:53→22:54)
[2016-04-06] VITALS: BP 137/61
[2016-04-06] MEDS: morphine INJ 10 MG/ML 1ML (SYR OR VIAL) IV PRN ×4 (01:22→15:03)
[2016-04-06] MEDS: RT-ALBUTEROL SULF 2.5 MG/3 ML PRE-MIX VIAL INH PRN ×2 (03:31→10:19)
[2016-04-06 04:00] VITALS: BP 105/65
[2016-04-06] MEDS: AA 4.25% W/LYTES IN D5W IV SOL 1,000 ML IV SCH ×2 (04:41→14:42)
[2016-04-06 06:59] LABS: BASOPHILS % (AUTO) 0 % (0-10); EOSINOPHILS # (AUTO) 0.1 10^3/uL (0.0-0.3); EOSINOPHILS % (AUTO) 1 % (0-10); LYMPHOCYTES # (AUTO) 0.7 X 10^3 (1.0-4.0); LYMPHOCYTES % (AUTO) 4 % (12-44); MEAN CORPUSCULAR HEMOGLOBIN 28 PG (25-34); MEAN CORPUSCULAR HGB CONC 31 G/DL (32-36); MEAN CORPUSCULAR VOLUME 89 FL (80-99); MONOCYTES # (AUTO) 1.6 X 10^3 (0.0-1.0); MONOCYTES % (AUTO) 9 % (0-12); NEUTROPHILS # (AUTO) 16.6 X 10^3 (1.8-7.8); NEUTROPHILS % (AUTO) 87 % (42-75); PLATELET COUNT 391 10^3/uL (130-400); RED BLOOD COUNT 3.47 10^6/uL (4.35-5.85); RED CELL DISTRIBUTION WIDTH 14.5 % (10.0-14.5); WHITE BLOOD COUNT 19.1 10^3/uL (4.3-11.0)
[2016-04-06 07:11] LABS: INR 1.1 (0.8-1.4); PROTHROMBIN TIME PATIENT 13.9 SEC (12.2-14.7)
[2016-04-06 07:25] LABS: ALANINE AMINOTRANSFERASE 16 U/L (0-55); ALBUMIN 2.6 G/DL (3.2-4.5); ANION GAP 9 MMOL/L (5-14); ASPARTATE AMINO TRANSFERASE 20 U/L (5-34); BILIRUBIN,TOTAL 0.7 MG/DL (0.1-1.0); BLOOD UREA NITROGEN 22 MG/DL (7-18); BUN/CREATININE RATIO 35; CALCIUM 9.7 MG/DL (8.5-10.1); CARBON DIOXIDE 22 MMOL/L (21-32); CHLORIDE 103 MMOL/L (98-107); CREATININE SERUM 0.63 MG/DL (0.60-1.30); GFR ESTIMATED > 60; GLUCOSE 111 MG/DL (70-105); MAGNESIUM 2.2 MG/DL (1.8-2.4); PHOSPHORUS 2.5 MG/DL (2.3-4.7); POTASSIUM 3.8 MMOL/L (3.6-5.0); SODIUM 134 MMOL/L (135-145); TOTAL PROTEIN 5.6 G/DL (6.4-8.2); TRIGLYCERIDES 87 MG/DL (<150)
[2016-04-06 08:00] VITALS: BP 150/66
[2016-04-06] MEDS: CEFEPIME 2 GM/NS 50 ML IVPB IV SCH ×4 (08:28→20:37)
[2016-04-06] MEDS: LEVOFLOXACIN 750 MG/D5W 150 ML PRE-MIX IV SCH (09:16)
[2016-04-06] MEDS ORDERED: FERR-74 PO (09:34)
[2016-04-06] MEDS ORDERED: RT-ALBUINH IH (09:34)
[2016-04-06] MEDS ORDERED: FENT1PAT6 TD (09:34)
[2016-04-06] MEDS ORDERED: MONT10TA24 PO (09:34)
[2016-04-06] MEDS ORDERED: GABA250S2 PO (09:34)
[2016-04-06] MEDS ORDERED: MTC5V480 PO (09:34)
[2016-04-06] MEDS ORDERED: NYST15CR TP (09:34)
[2016-04-06] MEDS ORDERED: MAGIC MOUTHWASH PO (09:34)
[2016-04-06] MEDS ORDERED: METO-333 PO (09:34)
[2016-04-06] MEDS ORDERED: OXYC5SOL19 PO (09:34)
[2016-04-06] MEDS: LORazepam INJ 2 MG/ML (ATIVAN) VIAL IVP PRN ×2 (10:34→22:46)
--- NOTE | 2016-04-06 11:28 | History & Physical-Hospitalist ---
HPI History of Present Illness: HPI/Chief Complaint CC: SOB HPI: This is a 60[facility]WM [facility] presented to ER with above complaint and has significant hx of oral CA diagnosed 03/11 s/p radical dissection and completed chemotherapy 06/09 but then either followed up at or no follow-up until recently had recurrence of right sided oral CA mass. Pt has been receiving aggressive chemotherapy at placed on TPN and feeding tube but pt very clearly at the end stage of life so he was admitted to [facility] and likely will initiate comfort care protocol. Dr. Dow Review: Dr. Dow states that he has discussed focusing on comfort with pt's family, and they agree since they have seen pt's CA continue to worsen even with treatment. Pt was first diagnosed 2 years ago, and treatment has not been able to stop CA progression. Dr. Dow states that pt will need to remain at [facility] until he passes, as he is completely dependent on medical staff for basic life support. Pharmacy Review: Pt is not improving on current treatment, and there is a slight possibility that addition of Vanc may improve health, but it is not likely to make a significant difference to pt prognosis overall. interior design teacher: RN states that pt is not doing well. Dr. Dow has not seen pt yet this morning. Pt's dressings were changed this morning. RN states that pt has some obstruction, and has difficulty breathing and speaking. Pt is alert, but unable to speak and has major anxiety. Pt's is concerned that J tube is not being used. SW Review: Pt will stay at [facility] until at least Saturday. Hospice discussion has been started. Pt currently has breathing treatments every 4 hours. Patient Interview: Dr. Maciel informs pt and family that he has received Ativan to reduce pt's anxiety and relax his breathing. Physical exam reveals no new findings. Pt family states that pt had a rough night and had some pain this morning. Pt has received pain meds this morning which reduced pain. Dr. Dow was present and discussed previous treatment and [facility] with pt and family. Pt underwent 3 treatments at which did not seem to improve masses significantly. Dr. Dow informs pt family that pt is currently too weak to even consider continuing CA treatment, and discusses focusing more on pt's comfort rather than pt's CA. Dr. Dow informs pt and family that tumor will continue to grow, but that this is unavoidable. Scribed by Brian Isbell under the direct supervision of Dr. Maciel. Source: patient Exam Limitations: clinical condition Date Seen 04/06/16 Attending Physician Payton Maciel DO PCP Self,Steven RASHEED Referring Physician Date of Admission Apr 05, 2016 at 18:46 Home Medications & Allergies Home Medications Reviewed patient Home Medication Reconciliation Form Allergies Coded Allergies: No Known Drug Allergies (Unverified , 08/14/10) Past Smhmpiq-Tniwqr-Dblouf Hx Patient Social History Marrital Status: Employed/Student: retired Alcohol Use: Denies Use Recreational Drug Use: No Smoking Status: Never a Smoker 2nd Hand Smoke Exposure: No Physical Abuse Screen: No Sexual Abuse: No Recent Foreign Travel: No Contact w/other who traveled: No Recent Hopitalizations: Yes Recent Infectious Disease Expo: No Immunizations Up To Date Date of Influenza Vaccine: Dec 27, 2015 Seasonal Allergies Seasonal Allergies: No Surgeries HX Surgeries: Yes (FACIAL (ORAL), JTUBE, PORT PLACEMENT) Surgeries: Abdominal, Tracheostomy Respiratory Hx Respiratory Disorders: Yes (TRACH) Cardiovascular Hx Cardiovascular Disorders: Yes Cardiac Disorders: Hypertension Neurological Hx Neurological Disorders: No Genitourinary Hx Genitourinary Disorders: No Genitourinary Disorders: Kidney Stones Gastrointestinal Hx Gastrointestinal Disorders: No Gastrointestinal Disorders: Diverticulosis Musculoskeletal Hx Musculoskeletal Disorders: Yes Endocrine Hx Endocrine Disorders: No HEENT HX ENT Disorders: No Loss of Vision: Denies Hearing Impairment: Hard of Hearing, Hearing Aide Left Cancer Hx Cancer: Yes Cancer: Oral Psychosocial Hx Psychiatric Problems: No Blood Transfusions Adverse Reaction to a Blood Tr: No Reviewed Nursing Assessment Reviewed/Agree w Nursing PMH: Yes Family Medical History Significant Family History: No Pertinent Family Hx Family Hx: FH: breast cancer G8 SISTER FH: heart disease 19 MOTHER Myocardial infarction G8 BROTHER Review of Systems ROS-Unable to Obtain: unable to assess patient since he is sedated Constitutional: see HPI Physical Exam Physical Exam Vital Signs Vital Sign - Last 12Hours 04/05/16 04/05/16 14:10 20:10 Temp 98.4 Pulse 111 Resp 18 B/P 127/69 Pulse Ox 96 O2 Delivery Room Air FiO2 28 Capillary Refill : Less Than 3 Seconds General Appearance: No Apparent Distress WD/WN Chronically ill Cachetic Eyes: Bilateral Eye Normal Inspection, Bilateral Eye PERRL HEENT: Other (right side of face and neck covered with dressing due to the large severe mass) Neck: Full Range of Motion Normal Inspection Non Tender Supple Carotid Bruit Respiratory: Chest Non Tender Lungs Clear Normal Breath Sounds No Accessory Muscle Use No Respiratory Distress Cardiovascular: Regular Rate, Rhythm No Edema No Gallop No JVD No Murmur Normal Peripheral Pulses Gastrointestinal: Normal Bowel Sounds No Organomegaly No Pulsatile Mass Non Tender Soft Back: Normal Inspection No CVA Tenderness No Vertebral Tenderness Extremity: Normal Capillary Refill Normal Inspection Normal Range of Motion Non Tender No Calf Tenderness No Pedal Edema Neurologic/Psychiatric: Alert Depressed Affect Skin: Normal Color Warm/Dry Lymphatic: No Adenopathy Results Results/Procedures Lab Laboratory Tests 04/05/16 15:50 04/06/16 06:40 Assessment/Plan Admission Diagnosis Assessment: End of life status due to aggressive oral CA progression Assessment and Plan Plan: Ativan .5mg IV Palliative care consult Pt will remain at [facility] Extreme poor prognosis Clinical Quality Measures DVT/VTE Risk/Contraindication: Risk Factor Score Per Nursin RFS Level Per Nursing on Admit: 4+=Very High PAYTON MACIEL DO Apr 06, 2016 11:28
[2016-04-06 12:00] VITALS: BP 113/67
[2016-04-06 16:00] VITALS: BP 134/75
[2016-04-06] MEDS: RT-ALBUTEROL SULF 2.5 MG/3 ML PRE-MIX VIAL INH SCH ×3 (16:23→22:18)
[2016-04-06] MEDS ORDERED: [UNRECOGNIZED DRUG - OTHER] IV SCH ×11 (17:00)
[2016-04-06] MEDS ORDERED: SODIUM CHLORIDE IV SCH ×11 (17:00)
[2016-04-06] MEDS ORDERED: SODIUM ACETATE IV SCH ×11 (17:00)
[2016-04-06] MEDS: 1/2 NS IV SOLUTION 1,000 ML IV SCH (17:50)
--- NOTE | 2016-04-06 18:50 | Wound Care Progress Note ---
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 The patient has been admitted for comfort measures. Review of Systems HEENT: Other (Unable to swallow.) Pulmonary: Dyspnea Cough Objective Exam Last Set of Vital Signs Vital Signs Date Time Temp Pulse Resp B/P Pulse Ox O2 Delivery O2 Flow Rate FiO2 04/06/16 16:41 96 6.00 40 04/06/16 16:00 98.3 120 12 134/75 Trach Collar Capillary Refill : Less Than 3 Seconds I&O Intake and Output 04/06/16 00:00 Intake Total 200 ml Output Total 0 ml Balance 200 ml Intake Oral 0 ml IV Total 200 ml Output Urine Total 0 ml General: Other (Resting comfortably) Neck: Other (Trach stable, patent.) Lungs: Normal Air Movement Results Lab Laboratory Tests 04/05/16 19:05: Urine Bacteria NONE, Urine Bilirubin NEGATIVE, Urine Calcium Oxalate Crystals FEWH, Urine Casts NONE, Urine Clarity SLIGHTLY CLOUDY, Urine Color YELLOW, Urine Crystals PRESENTH, Urine Culture Indicated NO, Urine Glucose (UA) NEGATIVE , Urine Ketones 1+H, Urine Leukocyte Esterase 1+H, Urine Mucus SMALLH, Urine Nitrite NEGATIVE, Urine Protein 1+H, Urine RBC NONE, Urine RBC (Auto) NEGATIVE, Urine Specific Brandon 1.025H, Urine Squamous Epithelial Cells RARE, Urine Urobilinogen NORMAL, Urine WBC 2-5, Urine pH 6 04/06/16 06:40: Alanine Aminotransferase (ALT/SGPT) 16, Albumin 2.6L, Alkaline Phosphatase 82, Anion Gap 9, Aspartate Amino Transf (AST/SGOT) 20, BUN/Creatinine Ratio 35, Basophils # (Auto) 0.0, Basophils (%) (Auto) 0, Blood Urea Nitrogen 22H, Calcium Level 9.7, Carbon Dioxide Level 22, Chloride Level 103, Creatinine 0.63 , Eosinophils # (Auto) 0.1, Eosinophils (%) (Auto) 1, Estimat Glomerular Filtration Rate > 60, Glucose Level 111H, Hematocrit 31L, Hemoglobin 9.7L, INR Comment 1.1, Lymphocytes # (Auto) 0.7L, Lymphocytes (%) (Auto) 4L, Magnesium Level 2.2, Mean Corpuscular Hemoglobin 28, Mean Corpuscular Hemoglobin Concent 31L, Mean Corpuscular Volume 89, Mean Platelet Volume 10.0, Monocytes # (Auto) 1.6H, Monocytes (%) (Auto) 9, Neutrophils # (Auto) 16.6H, Neutrophils (%) (Auto ) 87H, Phosphorus Level 2.5, Platelet Count 391, Potassium Level 3.8, Prealbumin 10.7L, Prothrombin Time 13.9, Red Blood Count 3.47L, Red Cell Distribution Width 14.5, Sodium Level 134L, Total Bilirubin 0.7, Total Protein 5.6L, Triglycerides Level 87, White Blood Count 19.1H Microbiology 04/05/16 Blood Culture - Preliminary, Resulted No growth 04/05/16 Influenza Types A,B Antigen (GASPER) - Final, Complete Assessment/Plan Assessment/Plan Assessment/Plan 1. Advanced squamous CA of head/neck, on comfort measures. 2. Open wound R jaw with bone and hardware exposed. 3. Loss of domain in the mouth - unable to retract tongue into mouth. Plan: wound care discussed with the patient's . Dressings ordered. CHESTER FAUST MD Apr 06, 2016 6:50 pm
[2016-04-06 20:50] VITALS: BP 126/55
[2016-04-07] VITALS: BP 127/59
[2016-04-07] MEDS: RT-ALBUTEROL SULF 2.5 MG/3 ML PRE-MIX VIAL INH SCH ×6 (02:39→22:35)
[2016-04-07 04:00] VITALS: BP 134/65
[2016-04-07 06:06] LABS: ALANINE AMINOTRANSFERASE 15 U/L (0-55); ALBUMIN 2.3 G/DL (3.2-4.5); ANION GAP 6 MMOL/L (5-14); ASPARTATE AMINO TRANSFERASE 20 U/L (5-34); BILIRUBIN,TOTAL 0.5 MG/DL (0.1-1.0); BLOOD UREA NITROGEN 18 MG/DL (7-18); BUN/CREATININE RATIO 32; CALCIUM 9.2 MG/DL (8.5-10.1); CARBON DIOXIDE 24 MMOL/L (21-32); CHLORIDE 103 MMOL/L (98-107); CREATININE SERUM 0.57 MG/DL (0.60-1.30); GFR ESTIMATED > 60; GLUCOSE 101 MG/DL (70-105); MAGNESIUM 2.2 MG/DL (1.8-2.4); POTASSIUM 3.6 MMOL/L (3.6-5.0); SODIUM 133 MMOL/L (135-145); TOTAL PROTEIN 5.1 G/DL (6.4-8.2)
[2016-04-07 08:00] VITALS: BP 120/60
[2016-04-07] MEDS: CEFEPIME 2 GM/NS 50 ML IVPB IV SCH ×2 (09:02)
[2016-04-07] MEDS: LEVOFLOXACIN 750 MG/D5W 150 ML PRE-MIX IV SCH (09:02)
[2016-04-07] MEDS ORDERED: SODIUM PHOSPHATE INJ 30 MM in NS (IVPB) 250 ML IV ONE (09:11)
[2016-04-07] MEDS: morphine INJ 10 MG/ML 1ML (SYR OR VIAL) IV PRN (09:24)
[2016-04-07] MEDS ORDERED: LIDOCAINE UROJET 2% GEL 10 ML PKG ONE (09:55)
[2016-04-07] MEDS ORDERED: ONDANSETRON 4 MG/2 ML (SDV) Z0FRAN IVP PRN (10:15)
[2016-04-07] MEDS ORDERED: PROMETHAZINE INJ 25 MG/ML (PHENERGAN) AMP IVP PRN (10:15)
[2016-04-07] MEDS ORDERED: ACETAMINOPHEN 650 MG SUPP (TYLENOL) PR PRN (10:15)
[2016-04-07] MEDS ORDERED: SALIVA STIMULANT MOUTH SPRAY (BIOTENE) 1.5 OZ MM PRN (10:15)
[2016-04-07] MEDS ORDERED: ARTIFICAL TEARS 0.4 ML UNIT DOSE (REFRESH PLUS) OU PRN (10:15)
[2016-04-07] MEDS ORDERED: BISACODYL 10 MG SUPP (DULCOLAX) PR PRN (10:15)
[2016-04-07] MEDS ORDERED: ARTIFICIAL TEARS OINT (LACRI-LUBE) 3.5 GM TUBE OU PRN (10:15)
--- NOTE | 2016-04-07 10:27 | CONSULTATION REPORT ---
DATE OF CONSULTATION: 04/06/2016 The patient is admitted to room 430 REFERRING PHYSICIAN: Payton Evans DO. Mr. 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 He then underwent adjuvant radiation with weekly chemotherapy using cis-ely shoshone and completed all treatment in May 2014. He was on surveillance but his last follow-up at [facility] was in September 2014. By January 2016 he had developed nodule on the right side of the face which was rapidly enlarging and was seen at [facility]. After biopsies, recurrence was noted and he was started on treatment with keytruda and has completed 3 courses of treatment with no clinical response but with rapidly progressing disease. He was unable to tolerate the tube feeds even after replacing the G-tube and making it into a jejunostomy tube. He was loosing weight significantly and unable to swallow at all. He was recommended outpatient TPN from but as he was becoming very weak and could not tolerate this he was brought to the emergency room and admitted to the hospital for further management. PAST MEDICAL HISTORY: 1. 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 2. Other history includes a bleeding peptic ulcer in 2003 and partial gastrectomy for this. 3. Asthma since childhood with occasional flare-ups. 4. Hypertension. PRIOR SURGERIES INCLUDE: 1. A partial gastrectomy in 2003. 2. Composite resection with radical neck dissection for the squamous cell cancer. SOCIAL HISTORY: The patient is and lives in [place], [place]. He has a son age in his early 40s. 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 Extensive history of dipping tobacco using 1 to 1-1/2 cans for 38 years, quit 10 years ago. FAMILY HISTORY: Significant for maternal grandmother with breast cancer in early 60s, maternal aunt with breast cancer in early 60s. The patient's sister with breast cancer at the age of 40 years paternal side of family history is not available. PHYSICAL EXAMINATION: Physical exam showed an elderly male, thin and weak appearing with a very large mass in the right cheek and neck area covered with a dressing. The patient's had a picture of this area from yesterday which shows 1-1/2 to 2 inches defect in the right cheek with exposure of the graft that was put in previously. There are several nodules in the surrounding tissue which is turning more towards the neck. The patient is somnolent, but arousable and seems comfortable. His temperature was 98, pulse rate of 89, respiratory rate 16, blood pressure 150/66, oxygen saturation 100% on 6 liters of oxygen by nasal cannula. HEENT: Normocephalic, extraocular muscles intact, a large mass in the right side of the cheek face as well as extending to the right side of the neck with obvious defect in the right cheek. Surrounding nodules noted which is extending to the right side of the neck. CHEST: Chest was symmetrical. LUNGS: Fairly clear without wheezes or rales. CARDIOVASCULAR EXAM: Regular in rate and rhythm without murmurs or gallops. ABDOMEN: Soft, with a J-tube present with no erythema. EXTREMITIES: Showed no edema. NEUROLOGICAL EXAM: Showed no focal motor deficits. LABORATORY: CBC done today showed white count of 19.1, hemoglobin 9.7, platelet count 391,000 with neutrophil count of 16.6. Chemistry panel showed sodium level of 134 with the rest of the electrolytes normal. BUN was 22 and creatinine 0.63 and GFR more than 60 mL per minute. Liver function studies were normal except albumin level of 2.6. Influenza screen was negative. Chest x-rays show a no acute process compared to his previous x-rays from 2010, there was some significant weight loss. IMPRESSION: 1. Recurrent squamous cell carcinoma of the anterior alveolar ridge with rapidly progressing disease. 2. Status post treatment with keytruda x 3 cycles at [facility] with progressive disease. 3. Significant weight loss and deconditioning. The patient is not a candidate for any other chemotherapeutic regimens. 4. Previous history of stage IV A squamous cell carcinoma of anterior alveolar ridge due to tobacco dipping, status post composite resection with bilateral radical neck dissection in February 2014 followed by adjuvant chemoradiation. A lengthy discussion with the patient's family including his , son and [id number] and answered their questions. At this point no treatments for the cancer would be appropriate, other than best supportive care. The patient is unable to swallow and cannot tolerate tube feedings. He was started on outpatient TPN. Currently he is on Minocin IV and I would recommend continuing this. He is on morphine IV for pain control and is needing this intermittently. He is also on anxiolytics and I would recommend continuing this. Based on his pain medications need we may start him on CREAM HAULER with a basal rate within the next 2 days or so. His overall prognosis is guarded and would be appropriate to maintain him as a DNR and continue the supportive care. Patient as well as his family understands the prognosis and answered all of their questions. I will follow the patient with you. Dr. Oroczo is covering for me for this weekend. We will follow this patient. Job ID: [id number] Dictated Date: 04/06/2016 10:32:34 Roller Bearing Inspector Date: 04/07/2016 10:02:27/sandip WALLER
[2016-04-07] MEDS: morphine PCA 30 MG/30 ML VIAL IV PRN (11:29)
--- NOTE | 2016-04-07 11:33 | Progress Note-Hospitalist ---
Subjective HPI/CC On Admission CC: SOB HPI: This is a 60yoWM pt of [facility] presented to ER with above complaint and has significant hx of oral CA diagnosed 03/11 s/p radical dissection and completed chemotherapy 06/09 but then either followed up at or no follow-up until recently had recurrence of right sided oral CA mass. Pt has been receiving aggressive chemotherapy at placed on TPN and feeding tube but pt very clearly at the end stage of life so he was admitted to [facility] and likely will initiate comfort care protocol. Dr. Dow Review: Dr. Dow states that he has discussed focusing on comfort with pt's family, and they agree since they have seen pt's CA continue to worsen even with treatment. Pt was first diagnosed 2 years ago, and treatment has not been able to stop CA progression. Dr. Dow states that pt will need to remain at [facility] until he passes, as he is completely dependent on medical staff for basic life support. Pharmacy Review: Pt is not improving on current treatment, and there is a slight possibility that addition of Vanc may improve health, but it is not likely to make a significant difference to pt prognosis overall. action finisher: RN states that pt is not doing well. Dr. Dow has not seen pt yet this morning. Pt's dressings were changed this morning. RN states that pt has some obstruction, and has difficulty breathing and speaking. Pt is alert, but unable to speak and has major anxiety. Pt's is concerned that J tube is not being used. SW Review: Pt will stay at [facility] until at least Saturday. Hospice discussion has been started. Pt currently has breathing treatments every 4 hours. Patient Interview: Dr. Evans informs pt and family that he has received Ativan to reduce pt's anxiety and relax his breathing. Physical exam reveals no new findings. Pt family states that pt had a rough night and had some pain this morning. Pt has received pain meds this morning which reduced pain. Dr. Dow was present and discussed previous treatment and [facility] with pt and family. Pt underwent 3 treatments at which did not seem to improve masses significantly. Dr. Dow informs pt family that pt is currently too weak to even consider continuing CA treatment, and discusses focusing more on pt's comfort rather than pt's CA. Dr. Dow informs pt and family that tumor will continue to grow, but that this is unavoidable. Scribed by Brian Isbell under the direct supervision of Dr. Evans. Date Seen 04/07/16 Subjective/Events-last exam Overnight nursing staff report the patient is likely been able to void small frequent amounts. I instructed them to obtain a postvoid residual which is found to be a little over 300 mL. Patient reports some pelvic discomfort as a discussion with the patient family we will be inserting a Wharton catheter now. Also discussed the fact that considering his refractory oral squamous cell skin cancer and questionable infection antibiotics were not likely going to lead to increase in comfort and after discussion and agreement with morphine RUSSIAN TEACHER and comfort care measures which have been taking care of. After discussion with the patient and family. Objective Exam Vital Signs Vital Sign - Last 12Hours 04/05/16 04/05/16 14:10 20:10 Temp 98.4 Pulse 111 Resp 18 B/P 127/69 Pulse Ox 96 O2 Delivery Room Air FiO2 28 Capillary Refill : Less Than 3 Seconds General Appearance: Other (Somewhat chronically ill white male) HEENT: Other (Nodular ULCERATING erythematous mass over the right jaw and cheek there was no associated odor per this examiner's evaluation.) Respiratory: Other (Audible rhonchi are noted with slightly labored breathing. She does not appear to be in acute distress and he denies shortness of breath eyes closed sleeping during most of the evaluation) Cardiovascular: Regular Rate, Rhythm No Murmur Results/Procedures Lab Laboratory Tests 04/07/16 05:22 Assessment/Plan Assessment and Plan Assess & Plan/Chief Complaint 1. Urinary obstruction likely a combination of prostatism and narcotic therapy Wharton catheter will be placed for comfort care. Morphine RUSSIAN TEACHER has been initiated for comfort care protocol orders and the comfort care order set has been initiated as well. Family is going to be discussing antibiotics and if they are agreeable will discontinue them. 2. End-stage locally metastatic oral squamous cell skin cancer ADINA WASHINGTON MD Apr 07, 2016 11:33
--- NOTE | 2016-04-07 15:05 | Physician Progress Note ---
Progress Note Assessment/Plan Events since last exam Covering for Dr. Dow Patient is on palliative care per family and Dr Dow. He is comfortably sleeping with a large numbers of family around his bed. Pain is under good control Assessment/Plan A/P 1. Terminal head and neck cancer with a huge mass over right side of neck and rapidly growing. On palliative comfort care. No active issues at this point. 2. Will continue current treatment. I have told patient family to call me if there is any need. 3. Prognosis guarded. Vitals Last set of Vitals Signs Vital Signs Date Time Temp Pulse Resp B/P Pulse Ox O2 Delivery O2 Flow Rate FiO2 04/07/16 14:41 94 10.00 70 04/07/16 08:00 97.5 101 19 120/60 Trach Collar I&O I&O Intake and Output 04/07/16 00:00 Intake Total 2700 ml Output Total 525 ml Balance 2175 ml Intake Oral 0 ml IV Total 2700 ml Output Urine Total 525 ml # Bowel Movements 3 Labs Laboratory Tests 04/06/16 23:59: Glucometer 130H 04/07/16 05:22: Alanine Aminotransferase (ALT/SGPT) 15, Albumin 2.3L, Alkaline Phosphatase 79, Anion Gap 6, Aspartate Amino Transf (AST/SGOT) 20, BUN/Creatinine Ratio 32, Blood Urea Nitrogen 18, Calcium Level 9.2, Carbon Dioxide Level 24, Chloride Level 103, Creatinine 0.57L, Estimat Glomerular Filtration Rate > 60, Glucose Level 101, Magnesium Level 2.2, Phosphorus Level 2.0L, Potassium Level 3.6, Sodium Level 133L, Total Bilirubin 0.5, Total Protein 5.1L Microbiology 04/05/16 Blood Culture - Preliminary, Resulted No growth 04/05/16 Influenza Types A,B Antigen (GASPER) - Final, Complete Clinical Quality Measures DVT/VTE Risk/Contraindication: Risk Factor Score Per Nursin RFS Level Per Nursing on Admit: 4+=Very High ISRAEL CASANOVA MD Apr 07, 2016 15:05
[2016-04-07] MEDS: 1/2 NS IV SOLUTION 1,000 ML IV SCH (16:52)
[2016-04-07] MEDS ORDERED: SODIUM CHLORIDE 14.6% INJ 30 MEQ, SODIUM ACETATE INJ 50 MEQ, POTASSIUM CHLORIDE INJ 85 ... IV SCH ×11 (17:00)
[2016-04-07] MEDS: KETOROLAC 30 MG/ML VIAL IVP PRN (19:56)
[2016-04-07] MEDS: methylPREDNISolone 125 MG (Solu-MEDROL) VIAL IVP SCH (19:56)
[2016-04-07] MEDS: GLYCOPYRROLATE 0.2 MG/ML (ROBINUL) 2 ML VIAL IV PRN (19:57)
[2016-04-07] MEDS: LORazepam INJ 2 MG/ML (ATIVAN) VIAL IVP PRN ×3 (20:05→23:29)
[2016-04-07] MEDS: SCOPOLAMINE 1.5 MG (TRANSDERM-SCOP) PATCH TOP SCH (21:22)
[2016-04-08] MEDS: GLYCOPYRROLATE 0.2 MG/ML (ROBINUL) 2 ML VIAL IV PRN ×4 (01:15→14:36)
[2016-04-08] MEDS: morphine PCA 30 MG/30 ML VIAL IV PRN ×2 (01:18→17:14)
[2016-04-08] MEDS: RT-ALBUTEROL SULF 2.5 MG/3 ML PRE-MIX VIAL INH SCH ×4 (02:14→15:29)
[2016-04-08] MEDS: LORazepam INJ 2 MG/ML (ATIVAN) VIAL IVP PRN ×3 (05:37→12:48)
[2016-04-08] MEDS: methylPREDNISolone 125 MG (Solu-MEDROL) VIAL IVP SCH (05:37)
[2016-04-08] MEDS: KETOROLAC 30 MG/ML VIAL IVP PRN ×2 (08:29→14:37)
--- NOTE | 2016-04-08 11:25 | Progress Note-Hospitalist ---
Subjective HPI/CC On Admission CC: SOB HPI: This is a 60[facility]WM [facility] presented to ER with above complaint and has significant hx of oral CA diagnosed 03/11 s/p radical dissection and completed chemotherapy 06/09 but then either followed up at or no follow-up until recently had recurrence of right sided oral CA mass. Pt has been receiving aggressive chemotherapy at placed on TPN and feeding tube but pt very clearly at the end stage of life so he was admitted to [facility] and likely will initiate comfort care protocol. Dr. Dow Review: Dr. Dow states that he has discussed focusing on comfort with pt's family, and they agree since they have seen pt's CA continue to worsen even with treatment. Pt was first diagnosed 2 years ago, and treatment has not been able to stop CA progression. Dr. Dow states that pt will need to remain at [facility] until he passes, as he is completely dependent on medical staff for basic life support. Pharmacy Review: Pt is not improving on current treatment, and there is a slight possibility that addition of Vanc may improve health, but it is not likely to make a significant difference to pt prognosis overall. induction furnace operator: RN states that pt is not doing well. Dr. Dow has not seen pt yet this morning. Pt's dressings were changed this morning. RN states that pt has some obstruction, and has difficulty breathing and speaking. Pt is alert, but unable to speak and has major anxiety. Pt's is concerned that J tube is not being used. SW Review: Pt will stay at [facility] until at least Saturday. Hospice discussion has been started. Pt currently has breathing treatments every 4 hours. Patient Interview: Dr. Evans informs pt and family that he has received Ativan to reduce pt's anxiety and relax his breathing. Physical exam reveals no new findings. Pt family states that pt had a rough night and had some pain this morning. Pt has received pain meds this morning which reduced pain. Dr. Dow was present and discussed previous treatment and [facility] with pt and family. Pt underwent 3 treatments at which did not seem to improve masses significantly. Dr. Dow informs pt family that pt is currently too weak to even consider continuing CA treatment, and discusses focusing more on pt's comfort rather than pt's CA. Dr. Dow informs pt and family that tumor will continue to grow, but that this is unavoidable. Scribed by Brian Isbell under the direct supervision of Dr. Evans. Date Seen 04/08/16 Subjective/Events-last exam patient sleeping unarousable no audible rhonchi are noted. Family at bedside report no evidence for distress. Objective Exam Vital Signs Vital Sign - Last 12Hours 04/05/16 04/05/16 14:10 20:10 Temp 98.4 Pulse 111 Resp 18 B/P 127/69 Pulse Ox 96 O2 Delivery Room Air FiO2 28 Capillary Refill : Less Than 3 Seconds General Appearance: No Apparent Distress Chronically ill Respiratory: Lungs Clear Cardiovascular: Regular Rate, Rhythm No Murmur Extremity: Normal Inspection Skin: Pallor Assessment/Plan Assessment and Plan Assess & Plan/Chief Complaint 1. Urinary obstruction likely a combination of prostatism and narcotic therapy Wharton catheter will be placed for comfort care. Morphine MESH WORKER has been initiated for comfort care protocol orders and the comfort care order set has been initiated as well. Family is going to be discussing antibiotics and if they are agreeable will discontinue them. 2. 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 Questions answered. Family reassured about small amount of oozing coming from oral tumor. Did discuss the fact that this could take days if not a week or 2 considering his age and no history of lung or heart disease. End-of-life issues discussed with family 20 minutes of care time spent today. ADINA WASHINGTON MD Apr 08, 2016 11:25
--- NOTE | 2016-04-08 15:35 | Physician Progress Note ---
Progress Note Assessment/Plan Events since last exam Pt's wants to go home with hospice. She is ready. "He suffered too much and it is time for him to go peacefully" Assessment/Plan A/P 1. Terminal head and neck cancer with a huge mass over right side of neck and rapidly growing. On palliative comfort care. No active issues at this point. 2. is ready to take patient home with hospice. Will arrange home hospice either today or Saturday. 3. Prognosis guarded. Vitals Last set of Vitals Signs Vital Signs Date Time Temp Pulse Resp B/P Pulse Ox O2 Delivery O2 Flow Rate FiO2 04/08/16 15:30 10.00 28 04/08/16 02:14 95 04/08/16 01:18 10 04/07/16 20:00 Trach Collar 04/07/16 18:00 101.0 04/07/16 08:00 101 120/60 I&O I&O Intake and Output 04/08/16 00:00 Intake Total 1960 ml Output Total 1025 ml Balance 935 ml Intake Oral 0 ml IV Total 1960 ml Output Urine Total 1025 ml Labs Microbiology 04/05/16 Blood Culture - Preliminary, Resulted No growth 04/05/16 Influenza Types A,B Antigen (GASPER) - Final, Complete Clinical Quality Measures DVT/VTE Risk/Contraindication: Risk Factor Score Per Nursin RFS Level Per Nursing on Admit: 4+=Very High ISRAEL CASANOVA MD Apr 08, 2016 15:35
[2016-04-08] MEDS: 1/2 NS IV SOLUTION 1,000 ML IV SCH (17:09)
[2016-04-08] MEDS: RT-ALBUTEROL/IPRATROPIUM 3 ML (DUONEB) VIAL INH PRN (22:21)
[2016-04-09] MEDS: morphine PCA 30 MG/30 ML VIAL IV PRN ×2 (07:09→17:19)
--- NOTE | 2016-04-09 09:52 | Progress Note-Hospitalist ---
Progress Note HPI/CC on Admission CC: SOB HPI: This is a 60[facility]WM [facility] presented to ER with above complaint and has significant hx of oral CA diagnosed 03/11 s/p radical dissection and completed chemotherapy 06/09 but then either followed up at or no follow-up until recently had recurrence of right sided oral CA mass. Pt has been receiving aggressive chemotherapy at placed on TPN and feeding tube but pt very clearly at the end stage of life so he was admitted to [facility] and likely will initiate comfort care protocol. Dr. Dow Review: Dr. Dow states that he has discussed focusing on comfort with pt's family, and they agree since they have seen pt's CA continue to worsen even with treatment. Pt was first diagnosed 2 years ago, and treatment has not been able to stop CA progression. Dr. Dow states that pt will need to remain at [facility] until he passes, as he is completely dependent on medical staff for basic life support. Pharmacy Review: Pt is not improving on current treatment, and there is a slight possibility that addition of Vanc may improve health, but it is not likely to make a significant difference to pt prognosis overall. manager agency: RN states that pt is not doing well. Dr. Dow has not seen pt yet this morning. Pt's dressings were changed this morning. RN states that pt has some obstruction, and has difficulty breathing and speaking. Pt is alert, but unable to speak and has major anxiety. Pt's is concerned that J tube is not being used. SW Review: Pt will stay at [facility] until at least Saturday. Hospice discussion has been started. Pt currently has breathing treatments every 4 hours. Patient Interview: Dr. Maciel informs pt and family that he has received Ativan to reduce pt's anxiety and relax his breathing. Physical exam reveals no new findings. Pt family states that pt had a rough night and had some pain this morning. Pt has received pain meds this morning which reduced pain. Dr. Dow was present and discussed previous treatment and [facility] with pt and family. Pt underwent 3 treatments at which did not seem to improve masses significantly. Dr. Dow informs pt family that pt is currently too weak to even consider continuing CA treatment, and discusses focusing more on pt's comfort rather than pt's CA. Dr. Dow informs pt and family that tumor will continue to grow, but that this is unavoidable. Scribed by Brian Isbell under the direct supervision of Dr. Maciel. Progress Notes/Assess & Plan Date Seen 04/09/16 Admission Dx/Process Assessment: End of life status due to aggressive oral CA progression Diagonsis/Assessment & Plan Patient on comfort care protocol Patient comatose Family members at the bedside approximately 9 when I went into the room Answered all of their questions Patient will need placement due to the fact that this process could take weeks and not meet criteria for inpatient stay for that long PALLIATIVE MEDICINE PHYSICIAN and Ativan working well for his shortness of breath and anxiety and overall discomfort Cachectic, unresponsive, dressing in place over facial and neck oral cancer Assessment: End-of-life oral cancer with rapid progression and now on comfort care hospice patient Plan: Ativan .5mg IV along with PALLIATIVE MEDICINE PHYSICIAN Palliative care consult appreciated Placement needed Extreme poor prognosis ESTUARDO MACIEL DO Apr 09, 2016 09:52
[2016-04-09] MEDS: 1/2 NS IV SOLUTION 1,000 ML IV SCH ×2 (11:11→22:24)
--- NOTE | 2016-04-09 17:06 | Progress Note-Standard ---
Standard Progress Note Progress Notes/Assess & Plan Progress/Assessment & Plan 60 year old male with recurrent squamous cell cancer of head and neck region previously treated with composite resection and bilateral neck dissection followed by combined chemotherapy and radiation. Patient was noted to have rapidly progressing recurrence and treated with the palliative immunotherapy at [facility] with no response. He has not been able to swallow and did not tolerate the tube feeds. He has had more than 30 pound weight loss in the last 6 weeks. The right cheek and neck lesion is growing rapidly and has become necrotic with the defect in the cheek. This has increased in size over the weekend. Per patient and family's wishes he is only on comfort care. He is on morphine SOUND TECHNICIAN SUPERVISOR at 2 mg/h continuous infusion with 2 mg bolus as needed. Family had to use the bolus only 2 or 3 times today. He is somnolent and comfortable at rest. He is difficult to arouse but does wake up occasionally per family. He requires total care from nursing and his is unsure if she can provide this at home even with the help of hospice and help from other family members. Patient is terminal and continue best supportive care in the hospital setting. TWYLA YANG Apr 09, 2016 17:06
--- NOTE | 2016-04-09 17:39 | Wound Care Progress Note ---
Subjective Subjective Subjective/Events-last exam The progress notes from other physicians noted. The patient is on palliative care. I have little to add from a wound care standpoint. Will see again if requested, but otherwise sign-off. Objective Exam Last Set of Vital Signs Vital Signs Date Time Temp Pulse Resp B/P Pulse Ox O2 Delivery O2 Flow Rate FiO2 04/09/16 17:19 10 04/09/16 08:02 95 6.00 28 04/09/16 08:00 Trach Collar 04/07/16 18:00 101.0 04/07/16 08:00 101 120/60 Capillary Refill : Less Than 3 Seconds I&O Intake and Output 04/09/16 00:00 Intake Total 320 ml Output Total 550 ml Balance -230 ml Intake Oral 0 ml IV Total 320 ml Output Urine Total 550 ml Other Physical Findings Not examined or interviewed. Results Lab Microbiology 04/05/16 Blood Culture - Preliminary, Resulted No growth 04/05/16 Influenza Types A,B Antigen (GASPER) - Final, Complete Assessment/Plan Assessment/Plan Assessment/Plan advanced head and neck cancer. Plan: Will sign off. CHESTER FAUST MD Apr 09, 2016 17:39
[2016-04-10] MEDS: morphine PCA 30 MG/30 ML VIAL IV PRN ×3 (04:04→22:45)
[2016-04-10] MEDS: GLYCOPYRROLATE 0.2 MG/ML (ROBINUL) 2 ML VIAL IV PRN (09:06)
[2016-04-10] MEDS: KETOROLAC 30 MG/ML VIAL IVP PRN (09:07)
[2016-04-10] MEDS: SCOPOLAMINE 1.5 MG (TRANSDERM-SCOP) PATCH TOP SCH (09:11)
[2016-04-10] MEDS: 1/2 NS IV SOLUTION 1,000 ML IV SCH (15:12)
--- NOTE | 2016-04-10 17:31 | Progress Note-Standard ---
Standard Progress Note Progress Notes/Assess & Plan Progress/Assessment & Plan 60 year old male with recurrent squamous cell cancer of head and neck region previously treated with composite resection and bilateral neck dissection followed by combined chemotherapy and radiation. Patient was noted to have rapidly progressing recurrence and treated with the palliative immunotherapy at [facility] with no response. He has not been able to swallow and did not tolerate the tube feeds. He has had more than 30 pound weight loss in the last 6 weeks. The right cheek and neck lesion is growing rapidly and has become necrotic with the defect in the cheek. This has increased in size over the weekend. Per patient and family's wishes he is only on comfort care. He is on morphine CREDIT CONTROL MANAGER at 2 mg/h continuous infusion with 2 mg bolus as needed. From 8:00 AM to 3:00 PM patient required 30 mg of morphine per nursing staff. I will increase the basal rate to 3 mg/hr CI with 2 mg bolus every 30 minutes prn. He is somnolent but arousable. He denied pain. He continues to require total care from nursing. Patient is terminal and continue best supportive care. TWYLA YANG Apr 10, 2016 17:31
[2016-04-11] MEDS: KETOROLAC 30 MG/ML VIAL IVP PRN ×3 (00:35→21:01)
[2016-04-11] MEDS: morphine PCA 30 MG/30 ML VIAL IV PRN ×3 (05:36→20:14)
[2016-04-11] MEDS: RT-ALBUTEROL/IPRATROPIUM 3 ML (DUONEB) VIAL INH PRN (10:37)
[2016-04-11] MEDS: LORazepam INJ 2 MG/ML (ATIVAN) VIAL IVP PRN (11:49)
--- NOTE | 2016-04-11 15:26 | Progress Note-Standard ---
Standard Progress Note Progress Notes/Assess & Plan Progress/Assessment & Plan 60 year old male with recurrent squamous cell cancer of head and neck region previously treated with composite resection and bilateral neck dissection followed by combined chemotherapy and radiation. Patient was noted to have rapidly progressing recurrence and treated with the palliative immunotherapy at [facility] with no response. He has not been able to swallow and did not tolerate the tube feeds. He has had more than 30 pound weight loss in the last 6 weeks. The right cheek and neck lesion is growing rapidly and has become necrotic with the defect in the cheek. This has increased in size over the weekend. Per patient and family's wishes he is only on comfort care. He is on morphine SACK DEPARTMENT SUPERVISOR at 3 mg/h continuous infusion with 2 mg bolus as needed. He needed 2-3 boluses today and 1 dose of Ativan this AM. Patient is somnolent and not responding. Short periods of apnea noted. Patient is terminal and continue best supportive care. Family understands. TWYLA YANG Apr 11, 2016 15:26
[2016-04-11] MEDS: 1/2 NS IV SOLUTION 1,000 ML IV SCH (20:58)
[2016-04-12] MEDS: morphine PCA 30 MG/30 ML VIAL IV PRN ×3 (04:22→19:00)
[2016-04-12] MEDS: LORazepam INJ 2 MG/ML (ATIVAN) VIAL IVP PRN ×2 (11:03→21:58)
--- NOTE | 2016-04-12 15:57 | Progress Note-Standard ---
Standard Progress Note Progress Notes/Assess & Plan Progress/Assessment & Plan 60 year old male with recurrent squamous cell cancer of head and neck region previously treated with composite resection and bilateral neck dissection followed by combined chemotherapy and radiation. Patient was noted to have rapidly progressing recurrence and treated with the palliative immunotherapy ( Keytruda) at [facility] with no response. He has not been able to swallow and did not tolerate the tube feeds. He has had more than 30 pound weight loss in the last 6 weeks. The right cheek and neck lesion is growing rapidly and has become necrotic with the defect in the cheek. This has increased in size daily with new skin nodules appearing and growing rapidly. Significant drainage from right cheek defect. Per patient and family's wishes he is only on comfort care. He is on morphine BUILDING ATTENDANT at 3 mg/h continuous infusion with 2 mg bolus as needed. He is needing 30 mg of morphine in the last 6 hours.. Patient is somnolent and not responding. Intermittent grimace and some restlessness. Needed ativan once today. Will increase basal rate of morphine to 4 mg/hr now and titrate for comfort. Short periods of apnea noted. Patient is terminal and continue best supportive care. Family present in room. TWYLA YANG Apr 12, 2016 15:57
[2016-04-13] MEDS: 1/2 NS IV SOLUTION 1,000 ML IV SCH (01:04)
[2016-04-13] MEDS: morphine PCA 30 MG/30 ML VIAL IV PRN ×4 (01:05→18:07)
[2016-04-13] MEDS: GLYCOPYRROLATE 0.2 MG/ML (ROBINUL) 2 ML VIAL IV PRN ×2 (07:59→17:10)
--- NOTE | 2016-04-13 09:57 | Progress Note-Standard ---
Standard Progress Note Progress Notes/Assess & Plan Progress/Assessment & Plan 60 year old male with recurrent squamous cell cancer of head and neck region previously treated with composite resection and bilateral neck dissection followed by combined chemotherapy and radiation. Patient was noted to have rapidly progressing recurrence and treated with the palliative immunotherapy ( Keytruda) at [facility] with no response. He has not been able to swallow and did not tolerate the tube feeds. The right cheek and neck lesion is growing rapidly and has become necrotic with a defect in the cheek. This has increased in size daily with new skin nodules appearing and growing rapidly. Significant drainage from right cheek defect. Per patient and family' s wishes he is only on comfort care. He is on morphine SWIMMING POOL SALESPERSON at 4 mg/h continuous infusion with 2 mg bolus as needed. He needed 7 boluses through the night because of restlessness or grimacing. Patient is somnolent and not responding. Intermittent grimace and some restlessness per family. Advised to use ativan as needed to control restlessness. Will increase basal rate of morphine to 5 mg/hr now with 3 mg bolus every 30 minutes prn for comfort. Short periods of apnea persists. Few areas of redness appearing on back as patient not moving. Discussed about air mattress. Family considering the risks and benefits. Patient is terminal and continue best supportive care. Dr. Zavala covering for the weekend. TWYLA YANG Apr 13, 2016 09:57
[2016-04-13] MEDS: SCOPOLAMINE 1.5 MG (TRANSDERM-SCOP) PATCH TOP SCH (17:10)
[2016-04-13] MEDS ORDERED: [UNRECOGNIZED DRUG - OTHER] TOP SCH (21:00)
[2016-04-14] MEDS: morphine PCA 30 MG/30 ML VIAL IV PRN ×3 (00:15→11:55)
[2016-04-14] MEDS: LORazepam INJ 2 MG/ML (ATIVAN) VIAL IVP PRN (04:26)
[2016-04-14] MEDS: 1/2 NS IV SOLUTION 1,000 ML IV SCH (09:31)
--- NOTE | 2016-04-16 08:32 | Discharge Summary-Hospitalist ---
Diagnosis/Chief Complaint Date of Admission Apr 05, 2016 at 18:46 Date of Discharge Apr 14, 2016 at 14:30 Admission Diagnosis Assessment: End of life status due to aggressive oral CA progression Discharge Diagnosis Assessment: End of life status due to aggressive oral CA progression Patient on comfort care protocol Patient comatose Family members at the bedside approximately 9 when I went into the room Answered all of their questions Patient will need placement due to the fact that this process could take weeks and not meet criteria for inpatient stay for that long SAFETY SECURITY OFFICER and Ativan working well for his shortness of breath and anxiety and overall discomfort Cachectic, unresponsive, dressing in place over facial and neck oral cancer Assessment: End-of-life oral cancer with rapid progression and now on comfort care hospice patient Plan: Ativan .5mg IV along with SAFETY SECURITY OFFICER Palliative care consult appreciated Placement needed Extreme poor prognosis Reason Hospital Visit/Course CC: SOB HPI: This is a 60yoWM pt [facility] presented to ER with above complaint and has significant hx of oral CA diagnosed 03/11 s/p radical dissection and completed chemotherapy 06/09 but then either followed up at or no follow-up until recently had recurrence of right sided oral CA mass. Pt has been receiving aggressive chemotherapy at placed on TPN and feeding tube but pt very clearly at the end stage of life so he was admitted to [facility] and likely will initiate comfort care protocol. Dr. Dow Review: Dr. Dow states that he has discussed focusing on comfort with pt's family, and they agree since they have seen pt's CA continue to worsen even with treatment. Pt was first diagnosed 2 years ago, and treatment has not been able to stop CA progression. Dr. Dow states that pt will need to remain at [facility] until he passes, as he is completely dependent on medical staff for basic life support. Pharmacy Review: Pt is not improving on current treatment, and there is a slight possibility that addition of Vanc may improve health, but it is not likely to make a significant difference to pt prognosis overall. washer off: RN states that pt is not doing well. Dr. Dow has not seen pt yet this morning. Pt's dressings were changed this morning. RN states that pt has some obstruction, and has difficulty breathing and speaking. Pt is alert, but unable to speak and has major anxiety. Pt's is concerned that J tube is not being used. SW Review: Pt will stay at [facility] until at least Saturday. Hospice discussion has been started. Pt currently has breathing treatments every 4 hours. Patient Interview: Dr. Maciel informs pt and family that he has received Ativan to reduce pt's anxiety and relax his breathing. Physical exam reveals no new findings. Pt family states that pt had a rough night and had some pain this morning. Pt has received pain meds this morning which reduced pain. Dr. Dow was present and discussed previous treatment and with pt and family. Pt underwent 3 treatments at which did not seem to improve masses significantly. Dr. Dow informs pt family that pt is currently too weak to even consider continuing CA treatment, and discusses focusing more on pt's comfort rather than pt's CA. Dr. Dow informs pt and family that tumor will continue to grow, but that this is unavoidable. Scribed by Brian Isbell under the direct supervision of Dr. Maciel. Hospital course: Patient had an uneventful hospital course he was admitted but due to extensive and rapid progression of oral cancer is placed on end-of-life care Comfort Care by oncology and we monitored for discomfort and provided all support for the patient and the family during this difficult time but then he with family at the bedside in no acute distress and in no suffering or pain. Discharge Summary Discharge Physical Examination Allergies: Coded Allergies: No Known Drug Allergies (Unverified , 08/14/10) Vitals & I&Os Vital Signs Date Time Temp Pulse Resp B/P Pulse Ox O2 Delivery O2 Flow Rate FiO2 04/14/16 11:55 12 04/14/16 08:15 Trach Collar 6.00 28 04/14/16 08:00 81 04/11/16 01:30 99.3 Hospital Course Labs (last 24 hrs) Microbiology 04/05/16 Blood Culture - Final, Complete No growth 04/05/16 Influenza Types A,B Antigen (GASPER) - Final, Complete Discharge Home Medications: Active Scripts Active Reported [Magic Mouthwash] PO DAILY PRN PRN Metoclopramide HCl 5 Mg/5 Ml Syrp 5-10 Ml PO QID PRN Ventolin Hfa (Albuterol Sulfate) 18 Gm Hfa.aer.ad 2 Puff IH Q4H PRN Gabapentin 250 Mg/5 Ml Solution 5 Ml PO BID Nystatin 15 Gm Cream..g. TP DAILY PRN PRN Metoprolol Tartrate 25 Mg Tablet 12.5 Mg PO BID Montelukast Sodium 10 Mg Tablet 10 Mg PO DAILY Fentanyl Patch 12 MCG (Fentanyl) 1 Each Patch.td72 12 Mcg TD EVERY 72 HOURS Oxycodone HCl 5 Mg/5 Ml Solution 5-10 Ml PO Q4H PRN Ferrous Sulfate 325 Mg Tablet 325 Mg PO HS Aspirin 325 Mg Tab (Aspirin) 325 Mg Tab 325 Mg PO DAILY PRN Instructions to patient/family Please see electonic discharge instructions given to patient. Clinical Quality Measures DVT/VTE Risk/Contraindication: Risk Factor Score Per Nursin RFS Level Per Nursing on Admit: 4+=Very High ESTUARDO MACIEL DO Apr 16, 2016 08:32
== END 2016-04-14 14:30 | disposition expired | DRG 543 ==
LOC: EDUNIT# 13:50 → ER 13:53 → 4TH 18:46
PROVIDERS: ADMIT Internal Medicine; ATTEND Internal Medicine
DX: C41.1 Malignant neoplasm of mandible (principal); R64 Cachexia; S01.401A Unspecified open wound of right cheek and temporomandibular area, initial encounter; F41.9 Anxiety disorder, unspecified; I10 Essential (primary) hypertension; N13.9 Obstructive and reflux uropathy, unspecified; R63.4 Abnormal weight loss; J45.909 Unspecified asthma, uncomplicated; Z66 Do not resuscitate; Z87.891 Personal history of nicotine dependence; Z93.4 Other artificial openings of gastrointestinal tract status; Z92.21 Personal history of antineoplastic chemotherapy; Z92.3 Personal history of irradiation; Z93.0 Tracheostomy status
CPT/HCPCS: 36415; 71020; 80053; 81000; 82962; 83605; 83735; 84100; 84134; 84478; 85007; 85025; 85027; 85610; 87040; 87804; 94640; 94760; 94799; 96361; 96365; 96375